=== PATIENT | male | born 1960 | race Caucasian/White ===

== ENCOUNTER 2016-05-02 12:02 | Inpatient (IN) | payer MEDICAID, OTHER ==
[~2016-05-02] VITALS: Ht 188 cm; Wt 140.9 kg
[~2016-05-02 12:02] MED LIST: ASPI81TA2 PO; CARV12.5 PO; CMBV14.7IN INH; FURO20TA PO; GLYB2.5T5 PO; K20 PO; LOVA20TA7 PO; PRI20 PO; SYMINH IH; ZES20 PO
[2016-05-02 12:09] VITALS: BP 137/78; PULSE 104; RESP 15; O2SAT 98
--- NOTE | 2016-05-02 13:07 | DRSVH ---
PROCEDURE: X-RAY CHEST ONE VIEW, PORTABLE ([id number]) INDICATIONS: CHF TECHNIQUE: One view of the chest was acquired. COMPARISON: None. FINDINGS: Surgical changes and devices: None. Lungs and pleura: Lung volumes are low. There is mild interstitial prominence. No focal pulmonary opa cities. No pleural effusion or pneumothorax. Mediastinum: Mediastinal contours appear normal. Heart size is mildly enlarged. Bones and chest wall: No suspicious bony lesions. Overlying soft tissues appear unremarkable. IMPRESSION: Mild cardiomegaly and interstitial prominence suggesting fluid overload. Dictated by: Lubna Nye M.D. on 05/02/2016 at 13:05 Approved by: Lunba Nye M.D. on 05/02/2016 at 13:05
[2016-05-02 13:27] LABS: BASOPHILS % (AUTO) 0.7 % (0-3); EOSINOPHILS % (AUTO) 1.7 % (0-5); MONOCYTES % (AUTO) 8.1 % (4-12); Mean Corpuscular Volume 84.5 fL (81-100); NEUTROPHILS % (AUTO) 66.6 % (40-74); Platelet Count 252 bil/L (150-400)
--- NOTE | 2016-05-02 15:51 | ED.REPORT ---
HPI-General Illness Date of Service May 02, 2016 ED Provider: Vlad Alonzo MD 56 year old male with a hx of CHF, DM, asthma and HTN presents to the ED due to edema that has been worsening over the last month. The edema is present from the abdomen to the feet. The edema is causing him to become SOB. His SOB is worsened with any exertion. Pt has pain with walking due to the pressure on his legs. Pt denies CP. Pt was going to see his PCP, Dr. Escalona, but his appointment was cancelled. 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 Nursing Notes Stated Complaint: POSS CHF Chief Complaint: General Complaint Nursing Notes Reviewed: Yes Allergies: Coded Allergies: No Known Allergies (Unverified Allergy, Unknown, 05/02/16) Scheduled Albuterol HFA (Proair HFA) 8.5 Gm Hfa.aer.ad 2 PUFFS INHALATION Q4H Beclomethasone Dipropionate (Qvar) 8.7 Gm Aer.w.adap 1 PUFF INHALATION BID Furosemide (Lasix) 20 Mg Tablet 20 MG PO DAILY Lisinopril (Lisinopril) 10 Mg Tablet 10 MG PO DAILY Metformin (Glucophage) 1,000 Mg Tablet 1,000 MG PO BID Metformin ER (Metformin ER) 1,000 Mg Tablet 1,000 MG PO DAILY Potassium Chloride ER (Klor-Con M20) 20 Meq Tablet 20 MEQ PO DAILY Pravastatin (Pravastatin) 10 Mg Tablet 10 MG PO HS General Time Seen by MD: 15:45 Chief Complaint Other (LE edema) Hx Obtained From: Patient, Spouse Arrived By: Walk-in Sudden in Onset?: No Onset Occurred: More than a week ago... Symptom Duration: Since onset Location: : Leg left: Leg right Quality: Painful Severity: Current: Mild Associated with: Reports: Shortness of breath, Denies: Fever, Vomiting Similar Sx Previous: Yes Past Medical History Past Medical History 1. Gastrointestinal bleed due to large duodenal ulcer, duodenitis, gastritis. 2. Diabetes. 3. History of chronic systolic congestive heart failure. Suspected cardiomyopathy, worse at 7% EF, highest recorded EF 56%. 4. Asthma. 5. History of transient ischemic attack. 6. History of hypertension. Past Surgical History T&A Smoking History Never Smoker Social History Alcohol Use: Denies alcohol use Drug Use: Denies drug use Review of Systems Full Review of Systems Constitutional: Denies: Chills, Fever Respiratory: Reports: Dyspnea on exertion, Shortness of breath, Denies: Non-productive cough Cardiovascular: Reports: Dyspnea on exertion, Edema, Denies: Chest pain, Syncope GI: Denies: Abdominal pain, Diarrhea, Vomiting Male: Denies Dysuria Musculoskeletal: Reports: Extremity pain, Extremity swelling Neurologic: Denies: Change LOC, Headache Complete sys rev & neg: except as marked. Physical Exam Vital Signs Vital Signs Date Time Temp Pulse Resp B/P Pulse Ox O2 Delivery O2 Flow Rate FiO2 05/02/16 17:02 107 26 116/86 97 1 05/02/16 12:09 36.3 104 15 137/78 98 Room Air Initial VS: Reviewed Head / Eyes: Atraumatic, Normocephalic, PERRL ENT: Conjunctiva normal, No scleral icterus Neck: Supple, Full range of motion Abdomen / GI: Soft, Non-tender Extremities: Vascular intact (3+ edema to mid abd), Neuro intact Skin: Warm, Dry Neurologic: Alert, Oriented, Nonfocal Psychiatric: Mood/affect normal, Behavior normal, Normal thought content General/Constitutional: Awake, Alert, Cooperative Head / Eyes: Atraumatic, Normocephalic, PERRL, No scleral icterus Respiratory / Chest: Atraumatic, Breath sounds NL, Breath sounds = bilat, No rales, No rhonchi, No wheezing Dyspneic with exertion. Dull to percussion, lower third. Cardiovascular: Heart rate NL, Regular rhythm, Heart sounds NL, Cap refill not delayed, Peripheral circulation NL Abdomen: Soft, Non-tender 3+ edema to mid abd Skin: Color NL (No jaundice) Interpretation & Diagnostics Lab Results Interpretation Result Diagram: 05/02/16 1315 05/02/16 1315 Test 05/02/16 13:15 05/02/16 17:25 White Blood Count 6.9th/mm3 (3.8-10.1) Red Blood Count 4.77mil/mm3 (4.40-5.80) Hemoglobin 12.9g/dL (13.8-17.2) Hematocrit 40.3% (41.0-50.0) Mean Corpuscular Volume 84.5fL (81-100) Mean Corpuscular Hemoglobin 27.0pg (27.0-35.0) Mean Corpuscular Hemoglobin Concent 32.0% (32.0-37.0) Red Cell Distribution Width 16.0% (12.3-15.4) Platelet Count 252bil/L (150-400) Neutrophils (%) (Auto) 66.6% (40-74) Lymphocytes (%) (Auto) 22.8% (14-46) Monocytes (%) (Auto) 8.1% (4-12) Eosinophils (%) (Auto) 1.7% (0-5) Basophils (%) (Auto) 0.7% (0-3) Sodium Level 137mEq/L (134-144) Potassium Level 5.6mEq/L (3.5-5.2) Chloride Level 101mEq/L (97-108) Carbon Dioxide Level 26mmol/L (18-29) Blood Urea Nitrogen 28mg/dL (6-24) Creatinine 1.33mg/dL (0.76-1.27) Estimat Glomerular Filtration Rate 59mL/min (>59) Glucose Level 141mg/dL (60-99) Calcium Level 9.2mg/dL (8.5-10.1) Magnesium Level 2.0mg/dL (1.6-2.6) Total Bilirubin 1.0mg/dL (0.0-1.2) Aspartate Amino Transf (AST/SGOT) 19U/L (0-50) Alanine Aminotransferase (ALT/SGPT) 12U/L (0-44) Alkaline Phosphatase 92U/L (25-150) Troponin T < 0.010ug/L (0.0-0.011) Pro-B-Type Natriuretic Peptide 7614pg/mL (0-210) Total Protein 6.8g/dL (6.4-8.4) Albumin 3.4g/dL (3.4-5.0) Lipase 53U/L (13-60) Hold Alaniz Top Tube Received (Received) General Lab Results Interp 1: Labs reviewed ECG Interpretation Time: 13:57 Interpreted by: ED physician Rhythm / Conduction: Tachycardia (rate 104) X-Ray Chest Interpretation Chest Xray Interpretation: IMPRESSION: Mild cardiomegaly and interstitial prominence suggesting fluid overload. Dictated by: Lubna Nye M.D. on 05/02/2016 at 13:05 View: Portable, 1 view Interpretation / Wet Read by: Interpret - Radiologist Re-Eval/Medical Decision Time of Eval: 16:11 Re-Evaluation/Progress Note: Updated pt of labs, ECG and imaging results. Recommended admission. Pt understands and agrees with plan. All questions addressed. Consultation : Referral / Consult Name: Vivek Ambrose MD Consulted With: Hospitalist Call Returned at: 17:31 Dog Track Kennel Manager: Will see patient, Agrees with eval, Agrees with plan, Accepts admit Counseled Regarding: Diagnosis, Lab results, Need for admission Discharge & Departure Primary Impression: CHF exacerbation Disposition: ADMITTED TO HOSPITAL Discharge Condition All VS Reviewed: Yes Referrals: NOPCP (PCP) Jennifer Escalona MD Scribe Attestation Portions of this note were transcribed by Shruthi Escobar. I, (Dr. Alonzo) personally performed the history, physical exam and medical decision-making; I reviewed and confirmed the accuracy of the information in the transcribed note. Signed by: Vernell Pat 05/02/2016, 5093 copies to: Jennifer Escalona MD, Kirk H MD May 02, 2016 15:51 Shruthi Escobar May 02, 2016 16:17
[2016-05-02] MEDS ORDERED: METF1000 PO (16:12)
[2016-05-02] MEDS ORDERED: METF-496 PO (16:12)
[2016-05-02] MEDS ORDERED: LISI10TA PO (16:12)
[2016-05-02] MEDS ORDERED: BECL8.7A6 INHALATION (16:12)
[2016-05-02] MEDS ORDERED: PRAV10TA2 PO (16:12)
[2016-05-02] MEDS ORDERED: FURO-129 PO (16:13)
[2016-05-02] MEDS ORDERED: ALBU8.5H2 INHALATION (16:13)
[2016-05-02] MEDS ORDERED: POTA20TA7 PO (16:13)
[2016-05-02] MEDS ORDERED: Furosemide 10 mg/mL 4 mL Inj IVPUSH ONE (16:15)
[2016-05-02 17:02] VITALS: BP 116/86; PULSE 107; RESP 26; O2SAT 97
[2016-05-02] MEDS ORDERED: Polyethylene Glycol (PEG) 17 Gm Powder PO PRN (17:50)
[2016-05-02] MEDS ORDERED: Ondansetron 2 mg/mL 2 mL Inj IVPUSH PRN ×2 (17:50)
[2016-05-02] MEDS ORDERED: Glucose 40% Oral Gel 15 Gm Tube PO PRN (17:55)
[2016-05-02] MEDS ORDERED: Albuterol 2.5 mg/3 mL Inhalation Solution NEB PRN (18:00)
--- NOTE | 2016-05-02 18:05 | PCM.HPMED ---
Subjective Date of Service May 02, 2016 Primary Provider: Admitting Physician: Vivek Ambrose MD Primary Care Physician: Nopcp Attending Physician: Vivek Ambrose MD Chief Complaint: lower extremity swelling History of Present Illness: 56 year old male with a history of CHF, DM, Asthma and HTN presented to the ED due to worsening lower extremity edema. He stats that he noticed swelling in his bilateral lower extremity about few weeks ago which is gradually worsening and now extending up to his lower abdomen. He also complaints of exertional shortness of breath and crampy pain in his lower extremities more while walking. He was going to see his PCP, Dr. Escalona, but his appointment was cancelled and unable to reschedule it. 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 In ED, he was found to be tachycardic and blood tests showed elevation of pro-BNP. CXR revealed fluid overload. Allergies Coded Allergies: No Known Allergies (Unverified Allergy, Unknown, 05/02/16) PMH - Diabetes - Hypertension - Congestive heart failure - Obesity - Asthma Social History Hx Alcohol Use: No Hx Substance Use: No Hx Tobacco Use: No Smoking Status: Never Smoker Exam Vital Signs Vital Sign - Last Date Time Temp Pulse Resp B/P Pulse Ox O2 Delivery O2 Flow Rate FiO2 05/02/16 17:02 107 26 116/86 97 1 05/02/16 12:09 36.3 Room Air Exam General: In mild distress. AAO x 3 HEENT: Atraumatic, Normocephalic. Mosit mucous membranes. CVS: Regular rate and rhythm, No murmur, S1,S2 yu RS: Decreased breath sounds bilaterally, No wheezing Abdomen: soft, obese, distended, BS +nt Extremities: +3 bilateral lower extremity edema, NEON INSTALLER: AAO x 3, No focal neurological defects Lab and Diagnostics Result Diagram: 05/02/16 1315 05/02/16 1315 Assessment & Plan 56 year old male admitted with impression of acute on chronic congestive heart failure. Acute CHF exacerbation, active present o admission - Likely due to medication compliance - Will start on IV Lasix 40 mg BID - Strict I / O monitoring Diabetes - Will hold metformin in the hospital - Will place on insulin sliding scale Bowel regimen as per protocol Status: Pt to be admitted as inpatient due to complexity of medical condition that will require more then two mid night stay Pain Evaluation: Adequate Pain Control GI Prophylaxis: Proton Pump Inhibitor VTE Prophylaxis: Sub-Q Heparin (Unfractionated) Resuscitation Status: CPR: Attempt Resuscitation Vivek Ambrose MD May 02, 2016 18:05
[2016-05-02 18:20] LABS: APPEARANCE,URINE CLEAR (CLEAR,HAZY); COLOR,URINE YELLOW (YELLOW); OCCULT BLOOD,URINE NEGATIVE (NEGATIVE)
[2016-05-02 18:43] VITALS: BP 116/86; PULSE 107; RESP 26; O2SAT 97
[2016-05-02 19:03] VITALS: BP 126/81; PULSE 107; RESP 30; O2SAT 99
--- NOTE | 2016-05-02 19:30 | NUR ---
admit note: pt. came in for increased lower extremity swelling and increasing sob, worse over past couple weeks. pt. has been on 20mg po lasix at home, received 40mg iv lasix in the ER.
[2016-05-02] MEDS: Fluticasone 100 mCg Inhaler INHALATION SCH (20:42)
[2016-05-02] MEDS: Insulin LISPRO 300 Unit/3 mL Inj SUBQ SCH (20:43)
[2016-05-02] MEDS: Alum-Mag Hydrox-Simeth 30 mL Suspension PO PRN ×2 (21:16→21:21)
[2016-05-02 23:55] VITALS: PULSE 94
[2016-05-02] MEDS: Heparin 5,000 Unit/mL Inj SUBQ SCH (23:55)
[2016-05-03] VITALS (9 sets, daily range): BP systolic 109–139; BP diastolic 66–88; PULSE 86–108; RESP 18–26; O2SAT 92–100
--- NOTE | 2016-05-03 05:14 | NUR ---
Transfer of care: This RN took over care at 2300 from Fadia Henry RN, noticed physical assessment along with skin assessment had not been documented since arrival to floor from ED around 1900. RN contacted admitting RN to alert her to enter her assessment, RN stated she would take care of it.
--- NOTE | 2016-05-03 05:23 | NUR ---
Uneventful Night: Pt had an uneventful night, no c/o pain, chest pain or SOB while in bed. Pt slept off/on throughout the night, pleasant and cooperative with care.
[2016-05-03 06:11] LABS: BASOPHILS % (AUTO) 1.1 % (0-3); EOSINOPHILS % (AUTO) 3.3 % (0-5); MONOCYTES % (AUTO) 9.5 % (4-12); Mean Corpuscular Hemoglobin 26.7 pg (27.0-35.0); Mean Corpuscular Volume 84.3 fL (81-100); NEUTROPHILS % (AUTO) 57.1 % (40-74); Platelet Count 286 bil/L (150-400)
[2016-05-03] MEDS: Insulin LISPRO 300 Unit/3 mL Inj SUBQ SCH ×4 (07:51→22:00)
[2016-05-03] MEDS ORDERED: Furosemide 10 mg/mL 4 mL Inj IVPUSH SCH (08:30)
[2016-05-03] MEDS: Pantoprazole 20 mg ER24 Tablet PO SCH (08:52)
[2016-05-03] MEDS: Heparin 5,000 Unit/mL Inj SUBQ SCH ×2 (08:53→17:06)
[2016-05-03] MEDS: Fluticasone 100 mCg Inhaler INHALATION SCH ×2 (08:53→20:31)
--- NOTE | 2016-05-03 10:30 | NUR ---
IV access Pt reports has been "catching his IV on the bed" IV covered with tape and sleeve. IV not patent, D/Cd intact. New IV access obtained. Pt tolerated well, IV patent and non tender. Call light with in reach, will continue to monitor.
[2016-05-03] MEDS: Furosemide 10 mg/mL 4 mL Inj IVPUSH SCH ×2 (10:54→20:31)
--- NOTE | 2016-05-03 12:46 | PCM.PNMED ---
Subjective Date of Service May 03, 2016 Subjective - Pt seen and examined this morning. Still c/o shortness of breath especially on exertion. States that he is feeling better then yesterday. Lower extremity swelling is less than yesterday. Exam Vital Signs Vital Sign - Last Date Time Temp Pulse Resp B/P Pulse Ox O2 Delivery O2 Flow Rate FiO2 05/03/16 11:47 108 20 97 Room Air 05/03/16 09:36 36.3 134/88 05/03/16 05:47 2.00 Intake and Output 05/02/16 05/02/16 05/03/16 Cumulative From/Thru 15:00 23:00 07:00 05/02/16 12:09 - 05/03/16 06:47 Intake Total 350 ml 350 ml Output Total 1725 ml 1725 ml Balance -1375 ml -1375 ml Intake Oral 350 ml 350 ml Output Urine Total 1725 ml 1725 ml # Bowel Movements 0 0 Exam General: AAO x 3. Not in acute distress HEENT: Atraumatic, Normocephalic. Moist mucous membranes. CVS: Regular rate and rhythm, No murmur, S1,S2 yu RS: Decreased breath sounds bilaterally, No wheezing, Abdomen: soft, obese, distended, BS +nt Extremities: +3 bilateral lower extremity edema, No calf tenderness INVESTIGATOR WELFARE: AAO x 3, No focal neurological defects Lab and Diagnostics Result Diagram: 05/03/1650905/03/16509 Assessment & Plan 56 year old male admitted with impression of acute on chronic congestive heart failure. Acute CHF exacerbation, active present on admission - Improving clinically - BNP on admission was 7614 - Likely due to medication compliance - on IV Lasix 40 mg BID - Continue aspirin, statins and lisinopril - Strict I / O monitoring - ECHO pending - Will consult cardiology after ECHO and if he is not improving clinically. Diabetes - Will hold metformin in the hospital - Will place on insulin sliding scale Bowel regimen as per protocol Dispo: Home when medically stable. Pain Evaluation: Adequate Pain Control GI Prophylaxis: Proton Pump Inhibitor VTE Prophylaxis: Sub-Q Heparin (Unfractionated) Resuscitation Status: CPR: Attempt Resuscitation Vivek Ambrose MD May 03, 2016 12:46
--- NOTE | 2016-05-03 13:13 | NUR ---
Social Work Note D/A: Met at bedside with pt admitted with CHF, no insurance or PCP listed. 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 Pt shares that he let his medical condition get out of control, he is aware of the CHF signs. He had an appt. to establish care at [facility] with Dr. Escalona on 04/28 but it got cancelled. His work schedule makes it very difficult to schedule appts. He currently has no insurance but indicates he is working on that, currently utilizes the $4 medication program at [facility] for all his medications except his Albuterol. PLAN: PEER SPECIALIST to follow closer to d/c to offer assistance with an appt. at [facility] with Dr. Escalona. He will have a better sense of his work schedule as well. REMIGIO Armas
[2016-05-04] VITALS (9 sets, daily range): BP systolic 99–136; BP diastolic 64–84; PULSE 83–96; RESP 18–22; O2SAT 98–100
[2016-05-04] MEDS: Heparin 5,000 Unit/mL Inj SUBQ SCH ×3 (00:56→16:14)
[2016-05-04 06:03] LABS: Mean Corpuscular Hemoglobin 26.5 pg (27.0-35.0); Mean Corpuscular Volume 82.4 fL (81-100)
--- NOTE | 2016-05-04 06:44 | NUR ---
SOB Exacerbation Pt up and moving around room. Playing board games with . Notified pt is SOB and wants to use personal inhaler. Informed pt about medication policy of home medications while admitted to hospital and that PRN treatment by RT is available. Pt declined Nebulizer treatment. Laid in bed with HOB elevated. Symptoms resolved. Continuing to monitor.
[2016-05-04] MEDS: Insulin LISPRO 300 Unit/3 mL Inj SUBQ SCH ×4 (08:00→22:00)
[2016-05-04] MEDS: Fluticasone 100 mCg Inhaler INHALATION SCH ×2 (08:44→19:48)
[2016-05-04] MEDS: Pantoprazole 20 mg ER24 Tablet PO SCH (08:45)
[2016-05-04] MEDS: Furosemide 10 mg/mL 4 mL Inj IVPUSH SCH ×2 (08:46→19:48)
--- NOTE | 2016-05-04 12:55 | DRSVH ---
[facility] [address] [place] [address] Echocardiogram Report Name: WIL DIAS KStudy Date: 05/03/2016 Height: 74 in Hospital Exam Location: [facility] Weight: 373 lb Gender: Male BSA: 2.8 m2 : 1960 Age: 56 yrs BP: 139/84 mmHg Reason For Study: Congestive Heart Failure History: CHF Ordering Physician: Performed By: [facility] Interpretation Summary The left ventricle is severely dilated. There is no thrombus. The ejection fraction is estimated to be 15-20%. Compared to the prior exam, left ventricular function is markedly decreased. The right ventricle is moderately dilated. Right ventricular systolic function is moderately reduced. The left atrium is moderately dilated. There is moderate to severe mitral regurgitation. There is mild to moderate tricuspid regurgitation. Right ventricular systolic pressure is estimated to be 30 mmHg plus the clinically estimated CVP which cannot be estimated on this exam. Procedure: A two-dimensional transthoracic echocardiogram with color flow and Doppler was performed. The study quality was technically adequate. Comparison is made with the echocardiogram of 12/15/2010. A contrast injection of Definity was performed to improve assessment of LV function. The patient was in normal sinus rhythm during the exam. The patient had occasional PVCs during the exam. Left Ventricle: The left ventricle is severely dilated. Left ventricular wall thickness is normal. There is no thrombus. The ejection fraction is estimated to be 15-20%. Compared to the prior exam, left ventricular function is markedly decreased. Right Ventricle: The right ventricle is moderately dilated. Right ventricular systolic function is moderately reduced. Atria: The left atrium is moderately dilated. The right atrium is mildly dilated. The interatrial septum is intact with no evidence for an atrial septal defect. Mitral Valve: The mitral valve is normal in structure but abnormal in function. There is moderate to severe mitral regurgitation. Aortic Valve: The aortic valve is trileaflet. The aortic valve opens well. There is mild aortic regurgitation. Tricuspid Valve: The tricuspid valve leaflets are thin and pliable. There is mild to moderate tricuspid regurgitation. Right ventricular systolic pressure is estimated to be 30 mmHg plus the clinically estimated CVP which cannot be estimated on this exam. Pulmonic Valve: The pulmonic valve leaflets are thin and pliable; valve motion is normal. There is mild pulmonic regurgitation. Great Vessels: The aortic root is normal size. The ascending aorta is mildly enlarged. The IVC has a measurement of 30 mm. Pericardium/ Pleura There is no pericardial effusion. MMode/2D Measurements & Calculations LVIDd: 7.3 cm RA long axis: 6.4 cm LVOT diam LVIDs: 6.2 cm LA A2 area: 32.3 cm FS: 14.4 % LA A4 area: 30.6 cm RA area: 26.1 cm asc Aorta EPSS: 2.6 cm LA length (vol): 7.1 cm RA vol: 90.3 ml Diam: 3.8 cm IVSd: 0.76 cm LA vol: 118.0 ml RA : 31.9 ml/m LVPWd: 0.91 cm RVDd minor: 4.8 cm LA vol index: 41.7 ml/m IVC diam: 3.0 cm EDV(MOD-sp2) LV dewitt. diameter/BSA LV sys. diameter/BSA TAPSE: 1.4 cm : 273.8 ml (cm/m^2): 2.6 (cm/m^2): 2.2 Doppler Measurements & Calculations Ao V2 max MV E max patric MV E/A: 1.7 TR max patric : 113.5 cm/sec : 103.8 cm/sec Med Peak E' Patric : 273.3 cm/sec Ao max PG MV A max patric TR max PG : 5.2 mmHg : 59.7 cm/sec E/E' med: 17.8 : 29.9 mmHg Ao mean PG MV P1/2t: 36.5 msecMV A dur: 0.12 sec PA V2 max : 89.7 cm/sec LVOT Max Patric MR ERO: 0.33 cm2 PA mean PG : 51.5 cm/sec PA Accel Time ALTHEA(I,D): 2.3 cm : 0.12 sec sev ratio MV dec time MV P1/2t max patric Ao V2 mean LV V1 max PG : 0.13 sec : 78.6 cm/sec MVA(P1/2t): 6.0 cm2Ao V2 VTI: 19.6 cm LV V1 VTI: 9.5 cm ALTHEA(V,D): 2.1 cm2 MR flow rate PA V2 mean ALTHEA indexed to BSA : 129.3 cm3/sec : 53.5 cm/sec (cm^2/m^2): 0.80 MR PISA radius Electronically signed by: Kd Solares on Reading Physician:05/04/2016 12:55 PM
--- NOTE | 2016-05-04 20:46 | PCM.PNMED ---
Subjective Date of Service May 04, 2016 Subjective Patient is feeling a little bit better every day. He has no other new complaints. Exam Vital Signs Vital Sign - Last Date Time Temp Pulse Resp B/P Pulse Ox O2 Delivery O2 Flow Rate FiO2 05/04/16 17:11 36.6 83 20 114/77 98 Nasal Cannula 2.00 Intake and Output 05/03/16 05/03/16 05/04/16 Cumulative From/Thru 15:00 23:00 07:00 05/02/16 12:09 - 05/04/16 06:47 Intake Total 876 ml 855 ml 2081 ml Output Total 1450 ml 1000 ml 4175 ml Balance -574 ml -145 ml -2094 ml Intake Oral 876 ml 855 ml 2081 ml Output Urine Total 1450 ml 1000 ml 4175 ml # Bowel Movements 0 0 Exam General: Patient is in no apparent distress and when I enter the room was sitting up in a bedside chair, phone ordering his lunch from the kitchen. HEENT: Head is atraumatic normocephalic. Eyes: Pupils are equally round and reactive to light and accommodation. Extraocular muscles are intact. Sclera are white anicteric. Subconjunctival mucosa is pink. Ears and nose are unremarkable. Oropharynx: There is no mucosal lesions, there is no thrush, there is no pharyngitis. Neck: Is supple, there are no nodes, or masses or tenderness. Chest: Is clear to auscultation and percussion. However, there is diminished breath sounds bilaterally. There are no rales, rhonchi, wheezes or rubs. Heart: Rate, rhythm is regular. There is a grade 2/6 systolic murmur heard best at the left sternal border. There is no rub or gallop. Abdomen: Good bowel sounds are present. Abdomen is morbidly obese, soft, nontender, no organomegaly or masses were appreciated. Extremities: Are symmetrical and well perfused. There is 3+ pitting edema bilaterally, there is no cellulitis, no rash clearly evident. Neurologic: There are no focal neurological deficits. Cranial nerves II through XII are intact. There are no sensory or motor deficits. Psychiatric: Patients mood is calm and shows no sign of agitation. Genital: Deferred Rectal: Deferred Lab and Diagnostics Result Diagram: 05/04/1625 05/04/1625 Microbiology Name: LARISSA CORRALES,WIL Fink Age/Sex: 56/M Attend Dr: Vivek Ambrose MD Acct: [id number] Unit: [id number] Status: ADM IN Location: [facility] 3002-1 Re05/02/16 Disch: Specimen: [id number] Collected: 05/02/16 Status: COMP Req#: [id number] Received: 05/02/16 Source: URINE CC Manohar Desc : ARSH Mason Dr: JAGDISH LOPEZ MD Ordered: URINE CULT Procedure Result Verified Site Microbiology JC CULT URINE Final 05/04/16-911 No growth (<1,000 organisms/mL) X-Rays, CTs and MRIs PROCEDURE: X-RAY CHEST ONE VIEW, PORTABLE ([id number]) INDICATIONS: CHF TECHNIQUE: One view of the chest was acquired. COMPARISON: None. FINDINGS: Surgical changes and devices: None. Lungs and pleura: Lung volumes are low. There is mild interstitial prominence. No focal pulmonary opacities. No pleural effusion or pneumothorax. Mediastinum: Mediastinal contours appear normal. Heart size is mildly enlarged. Bones and chest wall: No suspicious bony lesions. Overlying soft tissues appear unremarkable. IMPRESSION: Mild cardiomegaly and interstitial prominence suggesting fluid overload. Dictated by: Lubna Nye M.D. on 05/02/2016 at 13:05 Approved by: Lubna Nye M.D. on 05/02/2016 at 13:05 Cardiac Echo Impressions Echocardiogram Report Name: WIL DIAS KStudy Date: 05/03/2016 Height: 74 in Hospital Exam Location: [facility] Weight: 373 lb Gender: Male BSA: 2.8 m2 : 1960 Age: 56 yrs BP: 139/84 mmHg Reason For Study: Congestive Heart Failure History: CHF Ordering Physician: Performed By: Elizabeth ALVARADO [facility] Interpretation Summary The left ventricle is severely dilated. There is no thrombus. The ejection fraction is estimated to be 15-20%. Compared to the prior exam, left ventricular function is markedly decreased. The right ventricle is moderately dilated. Right ventricular systolic function is moderately reduced. The left atrium is moderately dilated. There is moderate to severe mitral regurgitation. There is mild to moderate tricuspid regurgitation. Right ventricular systolic pressure is estimated to be 30 mmHg plus the clinically estimated CVP which cannot be estimated on this exam Assessment & Plan 56 year old male admitted with impression of acute on chronic congestive heart failure. # Acute CHF exacerbation, active present on admission with anasarca - Slowly Improving clinically - BNP on admission was 7614 - Likely due to medication compliance -Start beta blockade with Coreg 3.125 mg by mouth twice a day and increase gradually as tolerated - Continue IV Lasix 40 mg BID - Continue lisinopril -Continue aspirin and statin - Strict I / O monitoring - ECHO shows ejection fraction of 15-20% - Will consult cardiology # Diabetes - Will hold metformin in the hospital for now - Will place on insulin sliding scale # Morbid obesity -Apparently patient has lost a considerable amount weighted used to weigh over 400 pounds and now weighs 368 pounds Bowel regimen as per protocol Dispo: Home when medically stable. Discussed with patient's at bedside. Pain Evaluation: Adequate Pain Control GI Prophylaxis: Proton Pump Inhibitor VTE Prophylaxis: Sub-Q Heparin (Unfractionated) VTE Mechanical Devices: Intermittant Pneumatic CD Resuscitation Status: CPR: Attempt Resuscitation Noah Garduno MD May 04, 2016 20:46
[2016-05-05] VITALS (8 sets, daily range): BP systolic 90–137; BP diastolic 53–90; PULSE 75–90; RESP 20–24; O2SAT 95–100
[2016-05-05] MEDS: Heparin 5,000 Unit/mL Inj SUBQ SCH ×3 (00:03→17:09)
--- NOTE | 2016-05-05 05:01 | NUR ---
Activity Ambulating in room with strong steady gait. Reports TAVERAS with minimal activity but states it resolves quickly once at rest. Denies any significant improvement in respiratory status from admit but also denies worsening symptoms. Currently resting without any complaints.
[2016-05-05 06:02] LABS: BASOPHILS % (AUTO) 1.2 % (0-3); MONOCYTES % (AUTO) 9.2 % (4-12); Mean Corpuscular Hemoglobin 26.8 pg (27.0-35.0); Mean Corpuscular Volume 84.7 fL (81-100); NEUTROPHILS % (AUTO) 59.8 % (40-74); Platelet Count 287 bil/L (150-400)
[2016-05-05 06:35] LABS: Magnesium 2.1 mg/dL (1.6-2.6)
[2016-05-05] MEDS ORDERED: Furosemide 10 mg/mL 4 mL Inj IVPUSH SCH (08:30)
[2016-05-05] MEDS: Fluticasone 100 mCg Inhaler INHALATION SCH ×2 (08:54→20:04)
[2016-05-05] MEDS: Insulin LISPRO 300 Unit/3 mL Inj SUBQ SCH ×4 (08:54→22:00)
[2016-05-05] MEDS: Pantoprazole 20 mg ER24 Tablet PO SCH (08:55)
[2016-05-05] MEDS ORDERED: guaiFENesin DM 200-20 mg/10 mL Syrup PO PRN (11:05)
[2016-05-05] MEDS ORDERED: 0.9% Sodium Chloride 250 ML ONE (11:23)
[2016-05-05] MEDS: Furosemide Inj 100 MG in 0.9% Sodium Chloride 90 ML IV SCH (11:40)
--- NOTE | 2016-05-05 12:42 | CONS ---
[address] [address] CONSULTATION REPORT PATIENT: WIL DIAS : 1960 MR#: [id number] ADMIT: 05/02/2016 JOB ID: [id number] DATE OF SERVICE: 05/05/2016 CARDIOLOGY CONSULTATION: REASON FOR CONSULT: I was asked to see this patient regarding cardiomyopathy, symptoms of CHF. CHIEF COMPLAINT: Worsening shortness of breath, lower extremity swelling for the last couple of months. PRESENT HISTORY: This is a 56-year-old, pleasant male who has a history of nonischemic cardiomyopathy in remote past, which recovered based on echocardiogram in December 2010 with LV ejection fraction 60-65%, previous LV ejection fraction about 10% as per the previous history, status post heart catheterization in the last couple of years ago. At that time, no significant coronary artery disease. Details not available at present. History of GI bleed with duodenal ulcer in December 2010, which has recovered, essential hypertension, marked obesity, sleep apnea, diabetes mellitus, asthma. He got admitted because of above-mentioned chief complaint. According to the patient, from last three months he has been noticing worsening lower extremity swelling as well as shortness of breath. Swelling has worsened and now has extended all the way up to his abdomen. He gets shortness of breath on minimal exertion. Denies any active chest pain or palpitation. He has some orthopneic and PND like components as well. Denies any alcohol abuse or recent viral infection or connective tissue disorder. According to him, he was compliant with his medication. Denies any drug abuse. 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 Up until three months ago he was eating a lot of junk food but from last three months he has been trying to eat healthy. The patient was seen in the emergency department. He was found to be in congestive heart failure. He had echocardiogram yesterday which revealed severely dilated left ventricle with LV end-diastolic dimension 7.3 cm and systolic dimension 6.2 cm with LV ejection fraction 15-20%. Right ventricle moderately dilated. Right ventricular systolic function moderately reduced. Left atrium moderately dilated. Moderate to severe mitral regurgitation which appears to be functional, mild aortic regurgitation, mild to moderate tricuspid regurgitation. Pulmonary artery systolic pressure could not be evaluated, however, IVC was dilated. No pericardial effusion. PAST MEDICAL HISTORY: 1. History of nonischemic cardiomyopathy, which has recovered in 2010 with preserved LV function with recurrence of cardiomyopathy. 2. Essential hypertension. 3. History of systolic congestive heart failure in the past. 4. Marked obesity. 5. Sleep apnea. 6. Asthma. 7. Hyperlipidemia. PAST SURGICAL HISTORY: As stated above. ALLERGIES: Denies any allergy. SOCIAL HISTORY: Denies any tobacco abuse or substance abuse or alcohol abuse. MEDICATIONS: At home he was takin. Albuterol inhaler. 2. Furosemide 20 mg daily. 3. Lisinopril 10 mg daily. 4. Metformin 1 mg b.i.d. 5. Lasix. 6. Potassium chloride 20 mEq daily. 7. Pravastatin 10 mg daily. FAMILY HISTORY: Positive for hypertension. REVIEW OF SYSTEMS: HEENT: As stated above. Respiratory system as stated above. CV as stated above. GI as stated above. : Denies any hematuria or dysuria. GOLD PLATER: Denies any stroke, seizure. Hematology/endocrinology as stated above. Skin: Denies any new rash. PHYSICAL EXAMINATION: Blood pressure 116/78, heart rate 84, respiratory rate 20, oxygen saturation 2 L 96%. Today negative balance of 600. His weight is 169.2 kg. No significant anemia. Neck: Positive JVD. Chest: Decreased air entry with bilateral basal crepitations. CVS: Distant heart sounds. Abdomen: Markedly obese with skin edema, unable to palpate liver or spleen. Extremities: Significant bilateral lower extremity edema. Vascular: No evidence of critical limb ischemia. GOLD PLATER: Alert and oriented to time, place and person. Able to move all the four extremities. LABORATORY: Sodium 136, potassium 5.0, BUN 38, creatinine 1.47, yesterday creatinine was 1.30 with normal magnesium, bilirubin, AST, ALT. ProBNP decreased to 5559. Normal troponin. WBC 6, hemoglobin 12.3, platelets 287. IMAGING: X-ray chest: Cardiomegaly with evidence of CHF. EKG on admission revealed sinus rhythm with sinus tachycardia with some nonspecific ST-T changes, poor R-wave progression. QTc 457 msec. MT interval 182 msec. It was done on May 02, 2016. ASSESSMENT AND PLAN: 1. Subacute predominantly systolic biventricular failure with underlying severe dilated cardiomyopathy with significantly decreased LV function, moderate to severe mitral regurgitation which appears to be functional due to dilated left ventricle with known history of essential hypertension, diabetes mellitus, sleep apnea. The patient has known history of dilated cardiomyopathy which has recovered in the past. 2. The patient denies any recent viral infection, chemotherapy or radiation or history of drug abuse or alcohol abuse. No known history of coronary artery disease or connective tissue disorders. No history of substance abuse. 3. The patient has on clinical examination significant volume overload. We will start him on Lasix drip of 5 mg/hour and see the response. If we are not getting good urine output, we will recommend increasing to 10 mg/hour. Down the road if needed, we can add on Zaroxolyn to facilitate diuresis. In this whole process, worsening of renal function is expected. We will repeat electrolytes in the morning. If potassium remains stable, we will recommend adding spironolactone 12.5 mg to begin with. He has already started on carvedilol which at this point of time, we will continue, unless there is a deterioration of CHF. He is on CLEO inhibitor. Slowly and gradually we will recommend optimization and maximization of CLEO inhibitor and beta carline. He has a dilated cardiomyopathy. Hence there is indication for digoxin. I will start 125 mcg daily dose. Keep a close watch on dig level. After five days, repeat dig level. We will try to get his records from [place]. Consider fluid and salt restriction, daily input/output monitoring as well as pulmonary embolism prophylaxis. Once he gets compensated, he will need ischemic evaluation again in view of recurrence of significant cardiomyopathy. Tomorrow my associate, Dr. Orourke, will be available to see the patient. Discussed the plan with the patient and his as well as the hospitalist team. They agreed and concur. TOTAL TIME SPENT: About 70 minutes.
--- NOTE | 2016-05-05 19:16 | PCM.PNMED ---
Subjective Date of Service May 05, 2016 Subjective The patient is more tired today and more short of breath. He has no other new complaints. He has no chest pain. He has no fever, no chills, no diaphoresis. Exam Vital Signs Vital Sign - Last Date Time Temp Pulse Resp B/P Pulse Ox O2 Delivery O2 Flow Rate FiO2 05/05/16 17:30 36.4 90 24 109/76 95 Nasal Cannula 2.00 Intake and Output 05/04/16 05/04/16 05/05/16 Cumulative From/Thru 15:00 23:00 07:00 05/02/16 12:09 - 05/05/16 06:23 Intake Total 1340 ml 400 ml 3821 ml Output Total 900 ml 1000 ml 6075 ml Balance 440 ml -600 ml -2254 ml Intake Oral 1340 ml 400 ml 3821 ml IV Total 0 ml 0 ml Output Urine Total 900 ml 1000 ml 6075 ml # Bowel Movements 0 1 1 Exam General: Patient is lying supine in bed today appearing more fatigued than yesterday. HEENT: Head is atraumatic normocephalic. Eyes: Pupils are equally round and reactive to light and accommodation. Extraocular muscles are intact. Sclera are white anicteric. Subconjunctival mucosa is pink. Ears and nose are unremarkable. Oropharynx: There is no mucosal lesions, there is no thrush, there is no pharyngitis. Neck: Is supple, there are no nodes, or masses or tenderness. Chest: Is clear to auscultation and percussion. However, there is diminished breath sounds bilaterally. There are no rales, rhonchi, wheezes or rubs. Heart: Rate, rhythm is regular. Heart tones are distant. However, there is a grade 2/6 systolic murmur heard best at the left sternal border. There is no rub or gallop appreciated. Abdomen: Good bowel sounds are present. Abdomen is morbidly obese, soft, nontender, no organomegaly or masses were appreciated. Extremities: Are symmetrical and well perfused. There is 3+ pitting edema bilaterally, there is no cellulitis, no rash clearly evident. Neurologic: There are no focal neurological deficits. Cranial nerves II through XII are intact. There are no sensory or motor deficits. Psychiatric: Patients mood is calm and shows no sign of agitation. Genital: Deferred Rectal: Deferred Lab and Diagnostics Result Diagram: 12/29/16 0520 05/05/16 0520 Microbiology Name: WIL DIAS SR Age/Sex: 56/M Attend Dr: Vivek Ambrose MD Acct: [id number] Unit: [id number] Status: ADM IN Location: [facility] [place], [place] 3002-1 Re05/02/16 Disch: Specimen: [id number] Collected: 05/02/16 Status: COMP Req#: [id number] Received: 05/02/16 Source: URINE CC Sp Desc : ARSH Mason Dr: JESSICA,JAGDISH CLARK Ordered: URINE CULT Procedure Result Verified Site Microbiology JC CULT URINE Final 05/04/16-911 No growth (<1,000 organisms/mL) X-Rays, CTs and MRIs PROCEDURE: X-RAY CHEST ONE VIEW, PORTABLE ([id number]) INDICATIONS: CHF TECHNIQUE: One view of the chest was acquired. COMPARISON: None. FINDINGS: Surgical changes and devices: None. Lungs and pleura: Lung volumes are low. There is mild interstitial prominence. No focal pulmonary opacities. No pleural effusion or pneumothorax. Mediastinum: Mediastinal contours appear normal. Heart size is mildly enlarged. Bones and chest wall: No suspicious bony lesions. Overlying soft tissues appear unremarkable. IMPRESSION: Mild cardiomegaly and interstitial prominence suggesting fluid overload. Dictated by: Lubna Nye M.D. on 05/02/2016 at 13:05 Approved by: Lubna Nye M.D. on 05/02/2016 at 13:05 Cardiac Echo Impressions Echocardiogram Report Name: WIL DIAS KStudy Date: 05/03/2016 Height: 74 in Hospital Exam Location: [facility] Weight: 373 lb Gender: Male BSA: 2.8 m2 : 1960 Age: 56 yrs BP: 139/84 mmHg Reason For Study: Congestive Heart Failure History: CHF Ordering Physician: Performed By: [facility] Interpretation Summary The left ventricle is severely dilated. There is no thrombus. The ejection fraction is estimated to be 15-20%. Compared to the prior exam, left ventricular function is markedly decreased. The right ventricle is moderately dilated. Right ventricular systolic function is moderately reduced. The left atrium is moderately dilated. There is moderate to severe mitral regurgitation. There is mild to moderate tricuspid regurgitation. Right ventricular systolic pressure is estimated to be 30 mmHg plus the clinically estimated CVP which cannot be estimated on this exam Assessment & Plan 56 year old male admitted with impression of acute on chronic congestive heart failure. # Acute primarily systolic biventricular acute on chronic CHF exacerbation, active present on admission with anasarca -I have consulted Dr. Stock from cardiology and his impression is as follows: "Subacute predominantly systolic biventricular failure with underlying severe dilated cardiomyopathy with significantly decreased LV function, moderate to severe mitral regurgitation which appears to be functional due to dilated left ventricle with known history of essential hypertension, diabetes mellitus, sleep apnea. The patient has known history of dilated cardiomyopathy which has recovered in the past." - BNP on admission was 7614 - Likely due to medication compliance. We have requested the records from the house from [place] where he was diagnosed with congestive heart failure and a very low ejection fraction less than 10%, according to the patient. -Continue beta blockade with Coreg and increase to 6.25 mg, from 3.125 mg started yesterday, by mouth twice a day and increase gradually as tolerated -Change IV Lasix 40 mg BID to a Lasix drip starting at 5 mg an hour and increase to 10 mg an hour in little to no response. - Continue lisinopril for now, however if renal function deteriorates may need to discontinue. -Digoxin has been added by cardiology. Will need to follow digoxin levels -Consider addition of spironolactone and potassium remains stable. -Continue aspirin and statin - Strict I / O monitoring - ECHO shows ejection fraction of 15-20% # Diabetes - Will hold metformin in the hospital for now - Will place on insulin sliding scale # Morbid obesity -Apparently patient has lost a considerable amount weighted used to weigh over 400 pounds and now weighs 368 pounds Bowel regimen as per protocol Dispo: Home when medically stable. Patient is likely to be here several more days. Discussed with patient's at bedside. Discussed with Dr. Stock at length and appreciate his input. Pain Evaluation: Adequate Pain Control GI Prophylaxis: Proton Pump Inhibitor VTE Prophylaxis: Sub-Q Heparin (Unfractionated) VTE Mechanical Devices: Intermittant Pneumatic CD Resuscitation Status: CPR: Attempt Resuscitation Noah Garduno MD May 05, 2016 19:16
[2016-05-06] VITALS (13 sets, daily range): BP systolic 80–104; BP diastolic 49–69; PULSE 75–88; RESP 24–36; O2SAT 98–100
[2016-05-06] MEDS: Furosemide Inj 100 MG in 0.9% Sodium Chloride 90 ML IV SCH ×3 (01:00→23:00)
[2016-05-06] MEDS: Heparin 5,000 Unit/mL Inj SUBQ SCH (01:00)
[2016-05-06 06:29] LABS: BASOPHILS % (AUTO) 1.2 % (0-3); EOSINOPHILS % (AUTO) 3.3 % (0-5); MONOCYTES % (AUTO) 12.5 % (4-12); Mean Corpuscular Hemoglobin 26.9 pg (27.0-35.0); Mean Corpuscular Volume 85.7 fL (81-100); NEUTROPHILS % (AUTO) 54.6 % (40-74); Platelet Count 241 bil/L (150-400)
[2016-05-06] MEDS: Insulin LISPRO 300 Unit/3 mL Inj SUBQ SCH ×4 (08:00→21:52)
[2016-05-06] MEDS: Fluticasone 100 mCg Inhaler INHALATION SCH ×2 (08:57→20:30)
[2016-05-06] MEDS: Pantoprazole 20 mg ER24 Tablet PO SCH (08:58)
[2016-05-06] MEDS ORDERED: 0.9% Sodium Chloride 250 ML ONE (09:46)
--- NOTE | 2016-05-06 15:25 | NUR ---
Social Work: Continued d/c planning Data: Pt is on day 4 of hospitalization. EMR reviewed, pt discussed in rounds. states pt likely to remain in hospital for at least 2-3 more days. CIGAR HEAD PERFORATOR called [facility] and confirmed they have pt on their radar. Pt requires a follow up appointment to be made at d/c for [facility]. CIGAR HEAD PERFORATOR will continue to follow if needs arise. Assessment: Pt who is independent at baseline. Plan: Pt will d/c home via POV when medically stable. Pt requires a follow up appointment to be made at d/c for [facility]. CIGAR HEAD PERFORATOR will continue to follow if needs arise. DANIEL Davis
--- NOTE | 2016-05-06 16:19 | PCM.PNCARD ---
Subjective Date of service May 06, 2016 Chief Complaint dyspnea from HF History of Present Illness 56 yo obese M h/o DM, HTN, and remote self reported of HF that resolved in 2010 admitted with dyspnea from HFrEF. Subjective: Patient continues to feel short of breath. He is urinating better today with increased furosemide drip. PROBLEM LIST: # HFrEF: dilated LV (LVEDD 7.3cm) with EF 15%. Normal LVEF 2010 but it was low in the per patient # Mitral regurgitation, moderate to severe # Diabetes # HTN # HLD # Obesity # H/O GIB from duodenal ulcer 2010 that has resolved Exam Vital Signs Vital Sign - Last Date Time Temp Pulse Resp B/P Pulse Ox O2 Delivery O2 Flow Rate FiO2 05/06/16 13:48 36.6 75 24 90/56 98 Nasal Cannula 2.00 Intake and Output 05/05/16 05/05/16 05/06/16 Cumulative From/Thru 15:00 23:00 07:00 05/02/16 12:09 - 05/06/16 06:59 Intake Total 1215 ml 470 ml 5506 ml Output Total 1020 ml 1550 ml 8645 ml Balance 195 ml -1080 ml -3139 ml Intake Oral 1120 ml 470 ml 5411 ml IV Total 95 ml 0 ml 95 ml Output Urine Total 1020 ml 1550 ml 8645 ml # Bowel Movements 0 1 General appearance: No apparent distress, obese, pleasant, cooperative HEET: Normocephalic atraumatic, no scleral icterus, tongue midline, mucous membranes moist Neck: supple Cardiovascular: RRR, S1 and S2, +JVD, 3+ LE edema b/l Respiratory: fair aeration, conversational dyspnea, coarse b/l Abdomen: Soft, nontender, obese, + bowel sounds Lab and Diagnostics Result Diagram: 05/06/16 0600 05/06/16 06 X-Rays, CTs and MRIs Echo 05/03/2016: Severely dilated left ventricle with EF 15-20%, moderately dilated right ventricle with mildly reduced function, moderate to severe mitral regurgitation Assessment & Plan Assessment 56 yo obese M h/o DM, HTN, and remote self reported of HF that resolved in 2010 admitted with dyspnea from HFrEF: # HFrEF: dilated LV (LVEDD 7.3cm) with EF 15%. Normal LVEF 2010 but it was low in the 1999s per patient. He is NYHA class IV. He remains hypervolemic on exam but his BUN/Cr have risen with diuresis that could be due to cardiorenal syndrome (ACC stage D). Etiology of HF is unclear but ischemic cardiomyopathy is high on the differential given significant risk factors (uncontrolled diabetes, HTN, HLD). Idiopathic dilated cardiomyopathy also possible. Plan: - Stop carvedilol give decompensated HF - Continue furosemide IV 10mg/hr gtt - Stop lisinopril and will consider starting hydralazine for better afterload reduction. If significant DAWIT or the patient having hypotension, patient would need inotropic gtt - coronary angiography once euvolemic and Cr stable and at baseline # Mitral regurgitation, moderate to severe: likely due dilated LV. Continue to monitor. # Diabetes: defer to PCP. # HTN: well controlled. # HLD: reasonable control. - Continue pravastatin 10mg qhs # Obesity: patient educated to work on loosing weight as outpatient # H/O GIB from duodenal ulcer 2010 that has resolved. Will keep an eye on Hb/ Hct Problems: Pain Evaluation: Adequate Pain Control GI Prophylaxis: Proton Pump Inhibitor VTE Prophylaxis: Sub-Q Heparin (Unfractionated) VTE Mechanical Devices: Intermittant Pneumatic CD Resuscitation Status: CPR: Attempt Resuscitation Yaneth Orourke MD May 06, 2016 16:19
--- NOTE | 2016-05-06 18:35 | NUR ---
BP/output Pt's BP remained hypotensive throughout this shift, pt enc to change position slowly to allow body to adjust to the change prior to amb to [facility]. MD aware of BP's, staff scientist had dc'd Coreg. Pt urinating more, using urinal to ensure correct I/O. Bed in lowest, locked position and call light in reach.
--- NOTE | 2016-05-06 20:28 | PCM.PNMED ---
Subjective Date of Service May 06, 2016 Subjective The patient is feeling a little bit better today he has more energy and is slightly less short of breath. However, he still gets significant shortness of breath just going to the bathroom. Exam Vital Signs Vital Sign - Last Date Time Temp Pulse Resp B/P Pulse Ox O2 Delivery O2 Flow Rate FiO2 05/06/16 18:19 37.0 81 24 92/62 99 Nasal Cannula 2.00 Intake and Output 05/05/16 05/05/16 05/06/16 Cumulative From/Thru 14:59 22:59 06:59 05/02/16 12:09 - 05/06/16 06:59 Intake Total 1215 ml 470 ml 5506 ml Output Total 1020 ml 1550 ml 8645 ml Balance 195 ml -1080 ml -3139 ml Intake Oral 1120 ml 470 ml 5411 ml IV Total 95 ml 0 ml 95 ml Output Urine Total 1020 ml 1550 ml 8645 ml # Bowel Movements 0 1 Exam General: Patient is sitting up beside the bed today much more comfortable. HEENT: Head is atraumatic normocephalic. Eyes: Pupils are equally round and reactive to light and accommodation. Extraocular muscles are intact. Sclera are white anicteric. Subconjunctival mucosa is pink. Ears and nose are unremarkable. Oropharynx: There are no mucosal lesions, there is no thrush, there is no pharyngitis. Neck: Is supple, there are no nodes, or masses or tenderness. Chest: Is clearer to auscultation and percussion. However, there is still diminished breath sounds bilaterally. There are no rales, rhonchi, wheezes or rubs. Heart: Rate, rhythm is regular. Heart tones are distant. However, there is a grade 2/6 systolic murmur heard best at the left sternal border. There is no rub or gallop appreciated. Abdomen: Good bowel sounds are present. Abdomen is morbidly obese, soft, nontender, no organomegaly or masses were appreciated. Extremities: Are symmetrical and well perfused. There is 3+ pitting edema bilaterally, there is no cellulitis, no rash clearly evident. Neurologic: There are no focal neurological deficits. Cranial nerves II through XII are intact. There are no sensory or motor deficits. Psychiatric: Patients mood is calm and shows no sign of agitation. Genital: Deferred Rectal: Deferred Lab and Diagnostics Result Diagram: 05/06/16 0600 05/06/16 06 Microbiology Name: WIL DIAS SR Age/Sex: 56/M Attend Dr: Vivek Ambrose MD Acct: [id number] Unit: [id number] Status: ADM IN Location: [facility] [place] 3002-1 Re05/02/16 Disch: Specimen: [id number] Collected: 05/02/16 Status: COMP Req#: [id number] Received: 05/02/16 Source: URINE CC Sp Desc : ARSH Mason Dr: JESSICA,JAGDISH CLARK Ordered: URINE CULT Procedure Result Verified Site Microbiology JC CULT URINE Final 05/04/16-911 No growth (<1,000 organisms/mL) X-Rays, CTs and MRIs PROCEDURE: X-RAY CHEST ONE VIEW, PORTABLE ([id number]) INDICATIONS: CHF TECHNIQUE: One view of the chest was acquired. COMPARISON: None. FINDINGS: Surgical changes and devices: None. Lungs and pleura: Lung volumes are low. There is mild interstitial prominence. No focal pulmonary opacities. No pleural effusion or pneumothorax. Mediastinum: Mediastinal contours appear normal. Heart size is mildly enlarged. Bones and chest wall: No suspicious bony lesions. Overlying soft tissues appear unremarkable. IMPRESSION: Mild cardiomegaly and interstitial prominence suggesting fluid overload. Dictated by: Lubna Nye M.D. on 05/02/2016 at 13:05 Approved by: Lubna Nye M.D. on 05/02/2016 at 13:05 Cardiac Echo Impressions Echocardiogram Report Name: WIL DIAS KStudy Date: 05/03/2016 Height: 74 in Hospital Exam Location: [facility] Weight: 373 lb Gender: Male BSA: 2.8 m2 : 1960 Age: 56 yrs BP: 139/84 mmHg Reason For Study: Congestive Heart Failure History: CHF Ordering Physician: Performed By: [facility] Interpretation Summary The left ventricle is severely dilated. There is no thrombus. The ejection fraction is estimated to be 15-20%. Compared to the prior exam, left ventricular function is markedly decreased. The right ventricle is moderately dilated. Right ventricular systolic function is moderately reduced. The left atrium is moderately dilated. There is moderate to severe mitral regurgitation. There is mild to moderate tricuspid regurgitation. Right ventricular systolic pressure is estimated to be 30 mmHg plus the clinically estimated CVP which cannot be estimated on this exam Assessment & Plan 56 year old male admitted with impression of acute on chronic congestive heart failure. # Acute primarily systolic biventricular acute on chronic CHF exacerbation, active present on admission with anasarca -I have consulted Dr. Stock from cardiology and his impression is as follows: "Subacute predominantly systolic biventricular failure with underlying severe dilated cardiomyopathy with significantly decreased LV function, moderate to severe mitral regurgitation which appears to be functional due to dilated left ventricle with known history of essential hypertension, diabetes mellitus, sleep apnea. The patient has known history of dilated cardiomyopathy which has recovered in the past." -Dr. Gtz saw today 05/06/2016 and his recommendations are as follows: "- Stop carvedilol give decompensated HF - Continue furosemide IV 10mg/hr gtt - Stop lisinopril and will consider starting hydralazine for better afterload reduction. If significant DAWIT or the patient having hypotension, patient would need inotropic gtt - coronary angiography once euvolemic and Cr stable and at baseline" - BNP on admission was 7614. We will continue to check periodically - Likely due to medication compliance. We have requested the records from the house from [place] where he was diagnosed with congestive heart failure and a very low ejection fraction less than 10%, according to the patient. These records were filed a different building in over 10 years ago and will be here likely on May 10. -Coreg discontinued per cardiology -Continue Lasix drip 10 mg an hour in little to no response. - Discontinue lisinopril per cardiology -Digoxin has been added by cardiology. Will need to follow digoxin levels -Consider addition of spironolactone depending on potassium levels -Continue aspirin and statin - Strict I / O monitoring - ECHO shows ejection fraction of 15-20% # Diabetes - Will hold metformin in the hospital for now - Will place on insulin sliding scale # Morbid obesity -Apparently patient has lost a considerable amount weighted used to weigh over 400 pounds and now weighs 374 pounds much of which is water weight due to anasarca. Bowel regimen as per protocol Dispo: Home when medically stable. Patient is likely to be here several more days. Discussed with patient's at bedside. Discussed with Dr. Stock at length and appreciate his input. Pain Evaluation: Adequate Pain Control GI Prophylaxis: Proton Pump Inhibitor VTE Prophylaxis: Sub-Q Heparin (Unfractionated) VTE Mechanical Devices: Intermittant Pneumatic CD Resuscitation Status: CPR: Attempt Resuscitation Noah Garduno MD May 06, 2016 20:28
--- NOTE | 2016-05-06 20:29 | NUR ---
Shower Pt requesting to take shower. asked if Pt ok for shower and to be off telemetry. said NO. Pt told that the doctor was NOT ok with him taking shower. Pt showered any way and said he didn't care what the doctor said. in with Pt assisting with shower. notified.
[2016-05-07] VITALS (9 sets, daily range): BP systolic 87–139; BP diastolic 58–89; PULSE 77–93; RESP 19–26; O2SAT 95–100
[2016-05-07] MEDS: Insulin LISPRO 300 Unit/3 mL Inj SUBQ SCH ×4 (08:00→22:00)
[2016-05-07] MEDS: Fluticasone 100 mCg Inhaler INHALATION SCH ×2 (08:21→19:52)
[2016-05-07] MEDS: Furosemide Inj 100 MG in 0.9% Sodium Chloride 90 ML IV SCH ×2 (08:22→17:43)
[2016-05-07] MEDS: Pantoprazole 20 mg ER24 Tablet PO SCH (08:22)
--- NOTE | 2016-05-07 11:41 | NUR ---
Transfer to PCC Pt transferred to PCC via w/c, following report to Daphney Montoya RN. Pt's Lasix gtt remained running for transfer. Family at bedside and aware of transfer, all belongings sent with pt.
[2016-05-07] MEDS: D5W IV SCH ×4 (13:04→19:58)
[2016-05-07] MEDS: MILRINONE IV SCH ×4 (13:04→19:58)
[2016-05-07] MEDS ORDERED: Sodium Chloride LOK Flush 10 mL Syringe IVFLUSH PRN ×2 (13:25)
--- NOTE | 2016-05-07 13:39 | PCM.PNCARD ---
Subjective Date of service May 07, 2016 Chief Complaint dyspnea from HF History of Present Illness 56 yo obese M h/o DM, HTN, and remote self reported of HF that resolved in 2010 admitted with dyspnea from HFrEF. Subjective: Patient continues to feel short of breath. He is urinating better today and patient feels good about it. PROBLEM LIST: # HFrEF: dilated LV (LVEDD 7.3cm) with EF 15%. Normal LVEF 2010 but it was low in the 1999s per patient # Mitral regurgitation, moderate to severe # Diabetes # HTN # HLD # Obesity # H/O GIB from duodenal ulcer 2010 that has resolved Exam Vital Signs Vital Sign - Last Date Time Temp Pulse Resp B/P Pulse Ox O2 Delivery O2 Flow Rate FiO2 05/07/16 13:04 88 05/07/16 09:38 36.8 24 109/74 99 Nasal Cannula 2.00 Intake and Output 05/06/16 05/06/16 05/07/16 Cumulative From/Thru 15:00 23:00 07:00 05/02/16 12:09 - 05/07/16 05:00 Intake Total 1286 ml 6792 ml Output Total 1250 ml 9895 ml Balance 36 ml -3103 ml Intake Oral 832 ml 6243 ml IV Total 454 ml 549 ml Output Urine Total 1250 ml 9895 ml # Bowel Movements 1 General appearance: No apparent distress, obese, pleasant, cooperative HEET: Normocephalic atraumatic, no scleral icterus, tongue midline, mucous membranes moist Neck: supple Cardiovascular: RRR, S1 and S2, +JVD, 3+ LE edema b/l Respiratory: fair aeration, conversational dyspnea, coarse b/l Abdomen: Soft, nontender, obese, + bowel sounds Lab and Diagnostics Result Diagram: 05/06/16 0600 05/07/16 0510 X-Rays, CTs and MRIs Echo 05/03/2016: Severely dilated left ventricle with EF 15-20%, moderately dilated right ventricle with mildly reduced function, moderate to severe mitral regurgitation Assessment & Plan Assessment 56 yo obese M h/o DM, HTN, and remote self reported of HF that resolved in 2010 admitted with dyspnea from HFrEF: # HFrEF: dilated LV (LVEDD 7.3cm) with EF 15%. Normal LVEF 2010 but it was low in the 1999s per patient. He is NYHA class IV. He remains hypervolemic on exam but his BUN/Cr have risen with diuresis that is probably due to cardiorenal syndrome (ACC stage D). Etiology of HF is unclear but ischemic cardiomyopathy is high on the differential given significant risk factors ( uncontrolled diabetes, HTN, HLD). Idiopathic dilated cardiomyopathy also possible. Plan: - Monitor closely in the telemetry - Avoid beta-blockers at this time - Start IV milrinone gtt at low dose to help with inotropic support and afterload reduction - Continue furosemide IV 10mg/hr gtt - Coronary angiography once euvolemic and Cr stable and at baseline # Mitral regurgitation, moderate to severe: likely due dilated LV. Continue to monitor. # Diabetes: defer to PCP. # HTN: well controlled. # HLD: reasonable control. - Continue pravastatin 10mg qhs # Obesity: patient educated to work on loosing weight as outpatient # H/O GIB from duodenal ulcer 2010 that has resolved. Will closely monitor Hb/ Hct Problems: Pain Evaluation: Adequate Pain Control GI Prophylaxis: Proton Pump Inhibitor VTE Prophylaxis: Sub-Q Heparin (Unfractionated) VTE Mechanical Devices: Intermittant Pneumatic CD Resuscitation Status: CPR: Attempt Resuscitation Yaneth Orourke MD May 07, 2016 13:39
--- NOTE | 2016-05-07 13:43 | DRSVH ---
PROCEDURE: X-RAY PICC LINE PLACEMENT BY NURSE ([id number]) INDICATIONS: 56-year-old male with PICC placement for cardiac medications. COMPARISON: None. FINDINGS: PICC was placed by the intravenous therapy team from the left side. Fluoroscopic spot javier m demonstrates tip of PICC in the lower superior vena cava. IMPRESSION: Tip of PICC lies within the lower superior vena cava. Dictated by: Geronimo Mendez M.D. on 05/07/2016 at 13:41 Approved by: Geronimo Mendez M.D. on 05/07/2016 at 13:41
[2016-05-07] MEDS ORDERED: 0.9% Sodium Chloride 250 ML ONE (14:50)
--- NOTE | 2016-05-07 17:58 | NUR ---
Gtts Pt started on milrinone gtt at 0.241mcg/kg/min per Dr. Orourke, continues on Lasix gtt at 10mg/hr; 1350cc UOP since milrinone started. NSR with occasional PVCs, rate in 90s. Denies CP/Pressure. Independent to void in urinal at bedside. Uses call light to make needs known. at bedside.
--- NOTE | 2016-05-07 21:54 | PCM.PNMED ---
Subjective Date of Service May 07, 2016 Subjective Patient is feeling a little bit better today. He has no new complaints. Exam Vital Signs Vital Sign - Last Date Time Temp Pulse Resp B/P Pulse Ox O2 Delivery O2 Flow Rate FiO2 05/07/16 19:58 88 05/07/16 19:46 36.3 25 109/58 100 Nasal Cannula 3.00 Intake and Output 05/06/16 05/06/16 05/07/16 Cumulative From/Thru 15:00 23:00 07:00 05/02/16 12:09 - 05/07/16 05:00 Intake Total 1286 ml 6792 ml Output Total 1250 ml 9895 ml Balance 36 ml -3103 ml Intake Oral 832 ml 6243 ml IV Total 454 ml 549 ml Output Urine Total 1250 ml 9895 ml # Bowel Movements 1 Exam General: Patient is laying supine with head elevated approximately 15-20 this morning. He states that he is able to lay flatter more comfortably than before. HEENT: Head is atraumatic normocephalic. Eyes: Pupils are equally round and reactive to light and accommodation. Extraocular muscles are intact. Sclera are white anicteric. Subconjunctival mucosa is pink. Ears and nose are unremarkable. Oropharynx: There are no mucosal lesions, there is no thrush, there is no pharyngitis. Neck: Is supple, there are no nodes, or masses or tenderness. Chest: Is clearer to auscultation and percussion. However, there is still diminished breath sounds bilaterally. There are no rales, rhonchi, wheezes or rubs. Heart: Rate, rhythm is regular. Heart tones are distant. However, there is a grade 2/6 systolic murmur heard best at the left sternal border. There is no rub or gallop appreciated. Abdomen: Good bowel sounds are present. Abdomen is morbidly obese, soft, nontender, no organomegaly or masses were appreciated. Extremities: Are symmetrical and well perfused. There is 3+ pitting edema bilaterally, there is no cellulitis, no rash clearly evident. Neurologic: There are no focal neurological deficits. Cranial nerves II through XII are intact. There are no sensory or motor deficits. Psychiatric: Patients mood is calm and shows no sign of agitation. Genital: Deferred Rectal: Deferred Lab and Diagnostics Result Diagram: 05/06/16 0600 05/07/16 0510 Microbiology Name: WIL DIAS SR Age/Sex: 56/M Attend Dr: Vivek Ambrose MD Acct: [id number] Unit: [id number] Status: ADM IN Location: [facility] [place] 3002-1 Re05/02/16 Disch: Specimen: [id number] Collected: 05/02/16 Status: COMP Req#: [id number] Received: 05/02/16 Source: URINE GERBER Villela Desc : ARSH Mason Dr: JAGDISH LOPEZ MD Ordered: URINE CULT Procedure Result Verified Site Microbiology JC CULT URINE Final 05/04/16-09 No growth (<1,000 organisms/mL) X-Rays, CTs and MRIs PROCEDURE: X-RAY CHEST ONE VIEW, PORTABLE ([id number]) INDICATIONS: CHF TECHNIQUE: One view of the chest was acquired. COMPARISON: None. FINDINGS: Surgical changes and devices: None. Lungs and pleura: Lung volumes are low. There is mild interstitial prominence. No focal pulmonary opacities. No pleural effusion or pneumothorax. Mediastinum: Mediastinal contours appear normal. Heart size is mildly enlarged. Bones and chest wall: No suspicious bony lesions. Overlying soft tissues appear unremarkable. IMPRESSION: Mild cardiomegaly and interstitial prominence suggesting fluid overload. Dictated by: Lubna Nye M.D. on 05/02/2016 at 13:05 Approved by: Lubna Nye M.D. on 05/02/2016 at 13:05 Cardiac Echo Impressions Echocardiogram Report Name: WIL DIAS KStudy Date: 05/03/2016 Height: 74 in Hospital Exam Location: [facility] Weight: 373 lb Gender: Male BSA: 2.8 m2 : 1960 Age: 56 yrs BP: 139/84 mmHg Reason For Study: Congestive Heart Failure History: CHF Ordering Physician: Performed By: Elizabeth Lawson [facility] Interpretation Summary The left ventricle is severely dilated. There is no thrombus. The ejection fraction is estimated to be 15-20%. Compared to the prior exam, left ventricular function is markedly decreased. The right ventricle is moderately dilated. Right ventricular systolic function is moderately reduced. The left atrium is moderately dilated. There is moderate to severe mitral regurgitation. There is mild to moderate tricuspid regurgitation. Right ventricular systolic pressure is estimated to be 30 mmHg plus the clinically estimated CVP which cannot be estimated on this exam Assessment & Plan 56 year old male admitted with impression of acute on chronic congestive heart failure. # Acute primarily systolic biventricular acute on chronic CHF exacerbation, active present on admission with anasarca -I have consulted Dr. Stock from cardiology and his impression is as follows: "56 yo obese M h/o DM, HTN, and remote self reported of HF that resolved in 2010 admitted with dyspnea from HFrEF: # HFrEF: dilated LV (LVEDD 7.3cm) with EF 15%. Normal LVEF 2010 but it was low in the per patient. He is NYHA class IV. He remains hypervolemic on exam but his BUN/Cr have risen with diuresis that is probably due to cardiorenal syndrome (ACC stage D). Etiology of HF is unclear but ischemic cardiomyopathy is high on the differential given significant risk factors ( uncontrolled diabetes, HTN, HLD). Idiopathic dilated cardiomyopathy also possible. Plan: - Monitor closely in the telemetry - Avoid beta-blockers at this time - Start IV milrinone gtt at low dose to help with inotropic support and afterload reduction - Continue furosemide IV 10mg/hr gtt - Coronary angiography once euvolemic and Cr stable and at baseline" -Dr. Gtz saw today 05/06/2016 and his recommendations are as follows: - BNP on admission was 7614. We will continue to check periodically - Likely due to medication compliance. We have requested the records from the house from [place] where he was diagnosed with congestive heart failure and a very low ejection fraction less than 10%, according to the patient. These records were filed a different building in over 10 years ago and will be here likely on May 10. -Coreg discontinued per cardiology due to decompensated heart failure -Continue Lasix drip 10 mg an hour (due to little to no response at 5 mg an hour ). - Discontinue lisinopril per cardiology due to progressive renal failure -Digoxin has been added by cardiology. Will need to follow digoxin levels periodically. -Consider addition of spironolactone depending on potassium levels -Continue aspirin and statin - Strict I / O monitoring - ECHO shows ejection fraction of 15-20% # Diabetes - Will hold metformin in the hospital for now - Will place on insulin sliding scale # Morbid obesity -Apparently patient has lost a considerable amount weighted used to weigh over 400 pounds and now weighs 374 pounds much of which is water weight due to anasarca. Bowel regimen as per protocol Dispo: Home when medically stable. Patient is likely to be here several more days. Discussed with patient's at bedside. Discussed with Dr. Orourke at length and appreciate his input. Pain Evaluation: Adequate Pain Control GI Prophylaxis: Proton Pump Inhibitor VTE Prophylaxis: Sub-Q Heparin (Unfractionated) VTE Mechanical Devices: Intermittant Pneumatic CD Resuscitation Status: CPR: Attempt Resuscitation ShaanNoah MD May 07, 2016 21:54
[2016-05-08] VITALS (9 sets, daily range): BP systolic 104–130; BP diastolic 51–79; PULSE 82–102; RESP 17–28; O2SAT 97–100
[2016-05-08] MEDS: Furosemide Inj 100 MG in 0.9% Sodium Chloride 90 ML IV SCH (02:13)
[2016-05-08 03:42] LABS: BASOPHILS % (AUTO) 0.7 % (0-3); EOSINOPHILS % (AUTO) 2.5 % (0-5); MONOCYTES % (AUTO) 13.4 % (4-12); Mean Corpuscular Hemoglobin 26.5 pg (27.0-35.0); Mean Corpuscular Volume 85.2 fL (81-100); NEUTROPHILS % (AUTO) 64.9 % (40-74); Platelet Count 222 bil/L (150-400)
--- NOTE | 2016-05-08 04:37 | NUR ---
Cardiac: Milrinone gtt and lasix gtt infusing overnight. Pt voiding ample amount of pale urine per urinal ( see I &O). PT denies any chest pain or discomfort. Sp02 maintained 90s on 2 L NC. Tele SR 80s with PVCs. Care ongoing.
[2016-05-08] MEDS: D5W IV SCH ×4 (06:37→16:14)
[2016-05-08] MEDS: MILRINONE IV SCH ×4 (06:37→16:14)
[2016-05-08] MEDS: Pantoprazole 20 mg ER24 Tablet PO SCH (07:30)
[2016-05-08] MEDS: Insulin LISPRO 300 Unit/3 mL Inj SUBQ SCH ×4 (07:31→22:00)
[2016-05-08] MEDS: Fluticasone 100 mCg Inhaler INHALATION SCH ×2 (07:31→20:42)
[2016-05-08] MEDS: Furosemide 10 mg/mL 2 mL Inj IV SCH ×3 (10:07→20:42)
--- NOTE | 2016-05-08 10:54 | PCM.PNCARD ---
Subjective Date of service May 08, 2016 Chief Complaint dyspnea from HF History of Present Illness 56 yo obese M h/o DM, HTN, and remote self reported of HF that resolved in 2010 admitted with dyspnea from HFrEF. Subjective: Patient was started on milrinone gtt yesterday and had good diuresis. His breathing is much improved today and is able to speak without dyspnea PROBLEM LIST: # HFrEF: dilated LV (LVEDD 7.3cm) with EF 15%. Normal LVEF 2010 but it was low in the per patient # Mitral regurgitation, moderate to severe # Diabetes # HTN # HLD # Obesity # H/O GIB from duodenal ulcer 2010 that has resolved Exam Vital Signs Vital Sign - Last Date Time Temp Pulse Resp B/P Pulse Ox O2 Delivery O2 Flow Rate FiO2 05/08/16 08:00 91 05/08/16 07:30 Supplement Oxygen 05/08/16 07:25 36.9 24 123/67 100 2.00 05/08/16 03:24 98 Intake and Output 05/07/16 05/07/16 05/08/16 Cumulative From/Thru 15:00 23:00 07:00 05/02/16 12:09 - 05/08/16 05:08 Intake Total 790 ml 422 ml 453 ml 8457 ml Output Total 2270 ml 1950 ml 2225 ml 64008 ml Balance -1480 ml -1528 ml -1772 ml -7883 ml Intake Oral 790 ml 240 ml 200 ml 7473 ml IV Total 182 ml 253 ml 984 ml Output Urine Total 2270 ml 1950 ml 2225 ml 99941 ml # Voids 0 0 # Bowel Movements 0 0 1 General appearance: No apparent distress, obese, pleasant, cooperative HEET: Normocephalic atraumatic, no scleral icterus, tongue midline, mucous membranes moist Neck: supple Cardiovascular: RRR, S1 and S2, +JVD (less than yesterday), 3+ LE edema b/l Respiratory: fair aeration, coarse b/l Abdomen: Soft, nontender, obese, + bowel sounds Lab and Diagnostics Result Diagram: 05/08/16 0326 05/08/16 0326 X-Rays, CTs and MRIs Echo 05/03/2016: Severely dilated left ventricle with EF 15-20%, moderately dilated right ventricle with mildly reduced function, moderate to severe mitral regurgitation Assessment & Plan Assessment 56 yo obese M h/o DM, HTN, and remote self reported of HF that resolved in 2010 admitted with dyspnea from HFrEF: # HFrEF: dilated LV (LVEDD 7.3cm) with EF 15%. Normal LVEF 2010 but it was low in the per patient. He is NYHA class IIIb. He remains hypervolemic on exam but has responded nicely to milrinone and IV lasix with -3L in the past 24 hours. Etiology of HF is unclear but ischemic cardiomyopathy is high on the differential given significant risk factors (uncontrolled diabetes, HTN, HLD). Idiopathic dilated cardiomyopathy also possible. Plan: - Monitor closely in the telemetry - Avoid beta-blockers at this time - Continue hydralazine 25mg tid, hold if SBP < 110 - Continue IV milrinone gtt at low dose to help with inotropic support and afterload reduction - Change from furosemide IV 10mg/hr gtt to 60mg IV tid - Will consider starting CLEO-I in the next 1-2 days - Start spironolactone 12.5mg qday - Coronary angiography once euvolemic and Cr stable and at baseline # Mitral regurgitation, moderate to severe: likely due dilated LV. Continue to monitor. # Diabetes: defer to PCP. # HTN: well controlled. # HLD: reasonable control. - Continue pravastatin 10mg qhs # Obesity: patient educated to work on loosing weight as outpatient # H/O GIB from duodenal ulcer 2010 that has resolved. Will closely monitor Hb/ Hct Problems: Pain Evaluation: Adequate Pain Control GI Prophylaxis: Proton Pump Inhibitor VTE Prophylaxis: Sub-Q Heparin (Unfractionated) VTE Mechanical Devices: Intermittant Pneumatic CD Resuscitation Status: CPR: Attempt Resuscitation Yaneth Orourke MD May 08, 2016 10:54
--- NOTE | 2016-05-08 16:59 | NUR ---
Lasix/Tele Lasix drip has been DC'ed and 60mg IVP TID has been ordered. Pt voided 4125mL light marie urine during the shift, with BP's holding in the 115's. TELE SR with one 3 beat run of vtach around 1500.
--- NOTE | 2016-05-08 23:39 | PCM.PNMED ---
Subjective Date of Service May 08, 2016 Subjective Jaspal Flynn Sr is a 56-year-old male with past medical history significant for congestive heart failure, secondary to systolic, diabetes mellitus type II, asthma, and hypertension who presented to his [facility] ED due to worsening lower extremity edema and dyspnea. Hospital day #7. Overnight: There were no acute events. Telemetry overnight: Sinus rhythm, heart rate 80-90s, with occasional PVCs. The patient is resting comfortably on the side of the bed. He reports that his breathing has much improved. He is urinating frequently. He has not had a bowel movement in several days. He reports normal appetite. He denies headache , chest pain, shortness of breath, abdominal pain, nausea, vomiting, fever, chills, dysuria, or diarrhea. . Exam Vital Signs Vital Sign - Last Date Time Temp Pulse Resp B/P Pulse Ox O2 Delivery O2 Flow Rate FiO2 05/08/16 23:13 102 05/08/16 16:50 36.9 24 116/75 100 Nasal Cannula 1.00 05/08/16 03:24 98 Intake and Output 05/07/16 05/07/16 05/08/16 Cumulative From/Thru 15:00 23:00 07:00 05/02/16 12:09 - 05/08/16 05:08 Intake Total 790 ml 422 ml 453 ml 8457 ml Output Total 2270 ml 1950 ml 2225 ml 28537 ml Balance -1480 ml -1528 ml -1772 ml -7883 ml Intake Oral 790 ml 240 ml 200 ml 7473 ml IV Total 182 ml 253 ml 984 ml Output Urine Total 2270 ml 1950 ml 2225 ml 22760 ml # Voids 0 0 # Bowel Movements 0 0 1 Exam General: Patient is laying supine with head elevated approximately 15-20 this morning. He states that he is able to lay flatter more comfortably than before. HEENT: Head is atraumatic normocephalic. Eyes: Pupils are equally round and reactive to light and accommodation. Extraocular muscles are intact. Sclera are white anicteric. Subconjunctival mucosa is pink. Ears and nose are unremarkable. Oropharynx: There are no mucosal lesions, there is no thrush, there is no pharyngitis. Neck: Supple, there are no nodes, or masses or tenderness. Chest: Is clearer to auscultation and percussion. However, there is still diminished breath sounds bilaterally. There are no rales, rhonchi, wheezes or rubs. Heart: Rate, rhythm is regular. Heart tones are distant. However, there is a grade 2/6 systolic murmur heard best at the left sternal border. There is no rub or gallop appreciated. Abdomen: Good bowel sounds are present. Abdomen is morbidly obese, soft, nontender, no organomegaly or masses were appreciated. Extremities: Are symmetrical and well perfused. There is 3+ pitting edema bilaterally, there is no cellulitis, no rash clearly evident. Neurologic: There are no focal neurological deficits. Cranial nerves II through XII are intact. There are no sensory or motor deficits. Psychiatric: Patients mood is calm and shows no sign of agitation. . IVs and Medications Medications Reviewed: Medications were reviewed in detail Lab and Diagnostics Item Value Date Time Calcium Level 8.8 mg/dL 05/08/16 0326 Total Bilirubin 0.7 mg/dL 05/08/16 0326 Aspartate Amino Transf (AST/SGOT) 15 U/L 05/08/16 0326 Alanine Aminotransferase (ALT/SGPT) 11 U/L 05/08/16 0326 Alkaline Phosphatase 94 U/L 05/08/16 0326 Total Protein 6.0 g/dL L 05/08/16 0326 Albumin 3.3 g/dL L 05/08/16 0326 Result Diagram: 05/08/16 0326 05/08/16 1430 Microbiology Urine culture shows no growth to date. . X-Rays, CTs and MRIs X-RAY CHEST ONE VIEW, PORTABLE IMPRESSION: Mild cardiomegaly and interstitial prominence suggesting fluid overload. Dictated by: Lubna Nye M.D. on 05/02/2016 at 13:05 Approved by: Lubna Nye M.D. on 05/02/2016 at 13:05 . Cardiac Echo Impressions Echocardiogram Interpretation Summary: The left ventricle is severely dilated. There is no thrombus. The ejection fraction is estimated to be 15-20%. Compared to the prior exam, left ventricular function is markedly decreased. The right ventricle is moderately dilated. Right ventricular systolic function is moderately reduced. The left atrium is moderately dilated. There is moderate to severe mitral regurgitation. There is mild to moderate tricuspid regurgitation. Right ventricular systolic pressure is estimated to be 30 mmHg plus the clinically estimated CVP which cannot be estimated on this exam Electronically signed by: Kd Solares on Reading Physician:05/04/2016 12:55 PM . Assessment & Plan Jaspal Flynn Sr is a 56-year-old male with past medical history significant for congestive heart failure, secondary to systolic, diabetes mellitus type II, asthma, and hypertension who presented to his [facility] ED due to worsening lower extremity edema and dyspnea. Hospital day #7. # Acute on chronic primarily systolic biventricular CHF exacerbation, present on admission. Active. - NYHA class IV. - Likely due to medication non-compliance. We have requested the records from the house from [place] where he was diagnosed with congestive heart failure and a very low ejection fraction less than 10%, according to the patient. These records were filed a different building in over 10 years ago and will be here likely on May 10. - He remains hypervolemic on exam but his BUN/Cr have risen with diuresis that is probably due to cardiorenal syndrome (ACC stage D). - Etiology of heart failure is unclear but ischemic cardiomyopathy is high on the differential given significant risk factors (uncontrolled diabetes, HTN, HLD ). Idiopathic dilated cardiomyopathy also possible. - Monitor closely on telemetry. - Discontinue lisinopril per cardiology due to progressive renal failure - Digoxin has been added by cardiology. Will need to follow digoxin levels periodically. - Started spironolactone 25 mg daily per cardiology. - Continue aspirin 81 mg daily and pravastatin 10 mg daily at bedtime. - Strict I / O monitoring - ECHO shows ejection fraction of 15-20%, as above. - Carvedilol discontinued due to decompensated heart failure. Avoid beta- blockers. - BNP on admission was 7614. Continue to check periodically. - Start IV milrinone gtt at low dose to help with inotropic support and afterload reduction. - Lasix drip discontinued. Started furosemide IV 60 mg 3 times a day per cardiology. - Coronary angiography once euvolemic and Cr stable and at baseline. - Cardiology consulted and following. We appreciate their time and recommendations. Chronic problems: Hypertension, chronic. - Continue hydralazine 25 mg 3 times a day per cardiology. Diabetes mellitus type II, non-insulin using. Chronic. - Held metformin in the hospital for now. - Continue low dose correctional scale insulin. - Continue heart healthy/carbohydrate consistent diet. Morbid obesity, chronic. - BMI 46.8. - Apparently patient has lost a considerable amount weighted used to weigh over 400 pounds and now weighs 374 pounds much of which is water weight due to anasarca. Dispo: Home when medically stable. Patient is likely to be here several more days. . GI Prophylaxis: Proton Pump Inhibitor VTE Prophylaxis: Sub-Q Heparin (Unfractionated) VTE Mechanical Devices: Intermittant Pneumatic CD Resuscitation Status: CPR: Attempt Resuscitation Attending Statement The patient was seen and examined together with Dr. Slater on 05-08-16 and I agree with the history, exam and plan as outlined in the note above. Susan Slater DO May 08, 2016 23:39 Swetha Willis MD May 09, 2016 16:59
[2016-05-09] VITALS (13 sets, daily range): BP systolic 88–130; BP diastolic 48–76; PULSE 78–147; RESP 18–34; O2SAT 94–99
[2016-05-09] MEDS: D5W IV SCH ×8 (01:24→22:47)
[2016-05-09] MEDS: MILRINONE IV SCH ×8 (01:24→22:47)
[2016-05-09 04:11] LABS: BASOPHILS % (AUTO) 0.7 % (0-3); EOSINOPHILS % (AUTO) 2.8 % (0-5); MONOCYTES % (AUTO) 15.1 % (4-12); Mean Corpuscular Hemoglobin 27.3 pg (27.0-35.0); Mean Corpuscular Volume 83.6 fL (81-100); NEUTROPHILS % (AUTO) 56.2 % (40-74); Platelet Count 228 bil/L (150-400)
--- NOTE | 2016-05-09 05:17 | NUR ---
edema, uop pt a/o times three, brad, pt up to void per urinal in bathroom-steady on his feet and at bedside, pt very private person, large uop per urinal, see wt changes and i/o charting, pitting edema from toes to hips and some bilaterally on lateral portion of abdomen, pt stating he feels better after voiding off so much fluid, pt very compliant with fluid restriction, legs slightly reddened, pt states that happens when he feels warm, no bm, no n/v, abd round/soft, tele- hr 90-100, sr/st, bp stable, denies cp, ls-decreased t/o, hob up, ra sats while awake in mid to upper 90's while asleep pt on 1-2 liters o2 per nc, sats mid 90's, resp rate upper 20's, cont pulse ox on while pt asleep, milrinone gtt per orders, see mar for pt med list, left picc intact see assessment charting, plan:more diuresis, cardiac work up, Addendum: 05/09/16 at 0529 by ZULEMA DESIR RN pt had 13 beat run vt this am, pt asymptomatic, am labs pending,
[2016-05-09] MEDS: Insulin LISPRO 300 Unit/3 mL Inj SUBQ SCH ×4 (08:00→22:00)
[2016-05-09] MEDS: Furosemide 10 mg/mL 2 mL Inj IV SCH ×3 (08:34→21:58)
[2016-05-09] MEDS: Pantoprazole 20 mg ER24 Tablet PO SCH (08:34)
[2016-05-09] MEDS: Fluticasone 100 mCg Inhaler INHALATION SCH ×2 (08:35→21:58)
[2016-05-09] MEDS ORDERED: acetaZOLAMIDE 250 mg Tablet PO ONE (11:40)
--- NOTE | 2016-05-09 11:57 | PCM.PNCARD ---
Subjective Date of service May 09, 2016 Chief Complaint dyspnea from HF History of Present Illness 56 yo obese M h/o DM, HTN, and remote self reported of HF that resolved in 2010 admitted with dyspnea from HFrEF. Subjective: Patient was started on milrinone gtt 05/07/2016 and has had good diuresis since then. His breathing has much improved today and is able to speak without dyspnea. Patient's scrotum size has also decreased. PROBLEM LIST: # HFrEF: dilated LV (LVEDD 7.3cm) with EF 15%. Normal LVEF 2010 but it was low in the per patient # Mitral regurgitation, moderate to severe # Diabetes # HTN # HLD # Obesity # H/O GIB from duodenal ulcer 2010 that has resolved Exam Vital Signs Vital Sign - Last Date Time Temp Pulse Resp B/P Pulse Ox O2 Delivery O2 Flow Rate FiO2 05/09/16 08:30 36.9 96 28 118/66 99 Nasal Cannula 2.00 05/08/16 03:24 98 Intake and Output 05/08/16 05/08/16 05/09/16 Cumulative From/Thru 15:00 23:00 07:00 05/02/16 12:09 - 05/09/16 06:16 Intake Total 900 ml 546 ml 9903 ml Output Total 4125 ml 4000 ml 82143 ml Balance -3225 ml -3454 ml -38369 ml Intake Oral 900 ml 400 ml 8773 ml IV Total 146 ml 1130 ml Output Urine Total 4125 ml 4000 ml 61074 ml # Voids 0 # Bowel Movements 0 1 General appearance: No apparent distress, obese, pleasant, cooperative HEET: Normocephalic atraumatic, no scleral icterus, tongue midline, mucous membranes moist Neck: supple Cardiovascular: RRR, S1 and S2, +JVD (less than yesterday), 2+ LE edema b/l Respiratory: fair aeration, coarse b/l Abdomen: Soft, nontender, obese, + bowel sounds Lab and Diagnostics Result Diagram: 05/09/1640805/09/16408 X-Rays, CTs and MRIs Echo 05/03/2016: Severely dilated left ventricle with EF 15-20%, moderately dilated right ventricle with mildly reduced function, moderate to severe mitral regurgitation 12-lead ECG Tele: sinus rhythm with occasional PVCs and four beat run of non-sustained VT Assessment & Plan Assessment 56 yo obese M h/o DM, HTN, and remote self reported of HF that resolved in 2010 admitted with dyspnea and anasarca from HFrEF: # HFrEF: dilated LV (LVEDD 7.3cm) with EF 15%. Normal LVEF 2010 but it was low in the 2000s per patient. He is NYHA class IIIb. He remains hypervolemic on exam but has responded nicely to milrinone and IV lasix with -5L in the past 24 hours. Etiology of HF is unclear but ischemic cardiomyopathy is high on the differential given significant risk factors (uncontrolled diabetes, HTN, HLD). Idiopathic dilated cardiomyopathy also possible. Plan: - Monitor closely in the telemetry - Avoid beta-blockers at this time - Continue IV milrinone gtt at low dose to help with inotropic support and afterload reduction - Continue furosemide 60mg IV tid - Start lisinopril 5mg qhs - Uptitrate spironolactone from 12.5mg qday to 25mg qday - Uptitrate hydralazine from 25mg tid to 50mg tid, hold if SBP < 100 - Given one dose of acetazolamide 250mg PO X1 to help with rising CO2. - Coronary angiography once euvolemic and Cr stable and at baseline # Mitral regurgitation, moderate to severe: likely due dilated LV. Continue to monitor. # Diabetes: defer to PCP. # HTN: well controlled. # HLD: reasonable control. - Continue pravastatin 10mg qhs # Obesity: patient educated to work on loosing weight as outpatient # H/O GIB from duodenal ulcer 2010 that has resolved. Will closely monitor Hb/ Hct Problems: Pain Evaluation: Adequate Pain Control GI Prophylaxis: Proton Pump Inhibitor VTE Prophylaxis: Sub-Q Heparin (Unfractionated) VTE Mechanical Devices: Intermittant Pneumatic CD Resuscitation Status: CPR: Attempt Resuscitation Yaneth Orourke MD May 09, 2016 11:56
[2016-05-09] MEDS: Albuterol-Ipratropium 3 mL Inhalation Solution NEB SCH ×3 (12:52→20:49)
--- NOTE | 2016-05-09 17:32 | NUR ---
Social Work Note: Continued Discharge Planning Data& Assessment: EMR Reviewed. Pt is not medically ready for discharge at this time. SW met with pt at bedside to confirm discharge plan and assess for any unmet needs. Pt confirmed discharge plan to go home via POV when medically ready. Per MD in morning rounds, pt may have heart cath in the next 1-2 days. Pt denies any other needs at this time. SW to continue to follow if any needs arise. Plan: Anticipated discharge home via POV when medically ready. Pt denies any other needs at this time. SW to continue to follow if any needs arise. DANIEL Pena
--- NOTE | 2016-05-09 18:03 | NUR ---
O2/Output The pt remained off O2 for most of the day, with sats holding in the mid to low 90's. Approx 4 liters of urine output
--- NOTE | 2016-05-09 18:11 | PCM.PNMED ---
Subjective Date of Service May 09, 2016 Subjective Jaspal Flynn Sr is a 56-year-old male with past medical history significant for congestive heart failure, secondary to systolic, diabetes mellitus type II, asthma, and hypertension who presented to his [facility] ED due to worsening lower extremity edema and dyspnea. Hospital day #8. Overnight: There were no acute events. Telemetry overnight: 13 beat Vtach, otherwise heart rate 80-90s, with occasional PVCs. The patient is resting comfortably on the side of the bed. He reports that his breathing has much improved and is avoiding elevating feet due to increase congestion in lungs . He is urinating frequently. He has not had a bowel movement in several days. He reports normal appetite. He reports mild frontal and ocular headache and denies chest pain, shortness of breath on current O2, abdominal pain, nausea, vomiting, fever, chills, dysuria, or diarrhea. . Exam Vital Signs Vital Sign - Last Date Time Temp Pulse Resp B/P Pulse Ox O2 Delivery O2 Flow Rate FiO2 05/09/16 04:01 36.5 95 26 118/66 97 Nasal Cannula 1.50 05/08/16 03:24 98 Intake and Output 05/08/16 05/08/16 05/09/16 Cumulative From/Thru 15:00 23:00 07:00 05/02/16 12:09 - 05/09/16 06:16 Intake Total 900 ml 546 ml 9903 ml Output Total 4125 ml 4000 ml 62335 ml Balance -3225 ml -3454 ml -43347 ml Intake Oral 900 ml 400 ml 8773 ml IV Total 146 ml 1130 ml Output Urine Total 4125 ml 4000 ml 76334 ml # Voids 0 # Bowel Movements 0 1 Exam General: Patient is laying supine with head elevated approximately 15-20 this morning. He states that he is able to lay flatter more comfortably than before. HEENT: Head is atraumatic normocephalic. Eyes: Pupils are equally round and reactive to light and accommodation. Extraocular muscles are intact. Sclera are white anicteric. Subconjunctival mucosa is pink. Ears and nose are unremarkable. Oropharynx: There are no mucosal lesions, there is no thrush, there is no pharyngitis. Neck: Supple, there are no nodes, or masses or tenderness. Chest: Is clearer to auscultation and percussion. However, there is still diminished breath sounds bilaterally. There are no rales, rhonchi, wheezes or rubs. Heart: Rate, rhythm is regular. Heart tones are distant. However, there is a grade 2/6 systolic murmur heard best at the left sternal border. There is no rub or gallop appreciated. Abdomen: Good bowel sounds are present. Abdomen is morbidly obese, soft, nontender, no organomegaly or masses were appreciated anasarca and abdominal pitting edema much improved overnight. Extremities: Are symmetrical and well perfused. There is 3+ pitting edema bilaterally to the knee, there is no cellulitis, no rash clearly evident. Neurologic: There are no focal neurological deficits. Cranial nerves II through XII are intact. There are no sensory or motor deficits. Psychiatric: Patients mood is calm and shows no sign of agitation. IVs and Medications Medications Reviewed: Medications were reviewed in detail Lab and Diagnostics Result Diagram: 05/09/1640805/09/16408 Microbiology Urine culture shows no growth to date. . X-Rays, CTs and MRIs X-RAY CHEST ONE VIEW, PORTABLE IMPRESSION: Mild cardiomegaly and interstitial prominence suggesting fluid overload. Dictated by: Lubna Nye M.D. on 05/02/2016 at 13:05 Approved by: Lubna Nye M.D. on 05/02/2016 at 13:05 . Cardiac Echo Impressions Echocardiogram Interpretation Summary: The left ventricle is severely dilated. There is no thrombus. The ejection fraction is estimated to be 15-20%. Compared to the prior exam, left ventricular function is markedly decreased. The right ventricle is moderately dilated. Right ventricular systolic function is moderately reduced. The left atrium is moderately dilated. There is moderate to severe mitral regurgitation. There is mild to moderate tricuspid regurgitation. Right ventricular systolic pressure is estimated to be 30 mmHg plus the clinically estimated CVP which cannot be estimated on this exam Electronically signed by: Kd stack Reading Physician:05/04/2016 12:55 PM . Assessment & Plan Jaspal Flynn Sr is a 56-year-old male with past medical history significant for congestive heart failure, secondary to systolic, diabetes mellitus type II, asthma, and hypertension who presented to his [facility] ED due to worsening lower extremity edema and dyspnea. Hospital day #8. 1 Acute on chronic primarily systolic biventricular CHF exacerbation, present on admission. Active. - NYHA class IV. - Likely due to medication non-compliance. We have requested the records from the house from [place] where he was diagnosed with congestive heart failure and a very low ejection fraction less than 10%, according to the patient. These records were filed a different building in over 10 years ago and will be here likely on May 10. - He remains hypervolemic on exam but his BUN/Cr have risen with diuresis that is probably due to cardiorenal syndrome (ACC stage D). - Etiology of heart failure is unclear but ischemic cardiomyopathy is high on the differential given significant risk factors (uncontrolled diabetes, HTN, HLD ). Idiopathic dilated cardiomyopathy also possible. - Monitor closely on telemetry. - lisinopril 2.5 added today per cardiology. - Acetazolamide one time dose today per cardiology. - Digoxin has been added by cardiology. Will need to follow digoxin levels periodically. - Started spironolactone 25 mg daily per cardiology. - Continue aspirin 81 mg daily and pravastatin 10 mg daily at bedtime. - Strict I / O monitoring and daily standing weights. - ECHO shows ejection fraction of 15-20%, as above. - Carvedilol discontinued due to decompensated heart failure. Avoid beta- blockers. - BNP on admission was 7614. Continue to check periodically. - IV milrinone gtt at low dose to help with inotropic support and afterload reduction. - Started furosemide IV 60 mg 3 times a day per cardiology. - Coronary angiography once euvolemic and Cr stable and at baseline. - Cardiology consulted and following. We appreciate their time and recommendations. Chronic problems: Hypertension, chronic. - Continue hydralazine 25 mg 3 times a day per cardiology. Diabetes mellitus type II, non-insulin using. Chronic. - Held metformin in the hospital for now. - Will consider adding Canagliflozin. Morbid obesity, chronic. - BMI 46.8. - Apparently patient has lost a considerable amount weighted, used to weigh over 400 pounds and now weighs 374 pounds much of which is water weight due to anasarca. High risk medications: Acetaminophen for mild pain when necessary. Bowel regimen Senna and MiraLAX scheduled and PRN. Zofran when necessary for nausea and vomiting. SubQ heparin held for now. SCDs in place. Dispo: Home when medically stable. Patient is likely to be here several more days. . Pain Evaluation: Adequate Pain Control GI Prophylaxis: Proton Pump Inhibitor VTE Prophylaxis: Sub-Q Heparin (Unfractionated) VTE Mechanical Devices: Intermittant Pneumatic CD Resuscitation Status: CPR: Attempt Resuscitation Attending Statement The patient was seen and examined together with Dr. Leblanc on 05-09-16 and I agree with the history, exam and plan as outlined in the note above. LEONOR LEBLANC DO May 09, 2016 08:28 Swetha Willis MD May 10, 2016 16:01
[2016-05-10] VITALS (11 sets, daily range): BP systolic 89–124; BP diastolic 45–74; PULSE 86–102; RESP 16–28; O2SAT 94–99
--- NOTE | 2016-05-10 05:00 | NUR ---
Cardiac, , RESP TEL SR HR 90's PVCs, QTc 0.45, Milrinone gtt at 0.214 mcg/kg/min, Lasix 60 mg IV, denies CP or pressure, No SOB noted, speaks in full sentences, tolerated taking shower well, LS coarse, Pitting edema LE 1-2+ is decreasing, weight 153.1 kg down 6 kg from yesterday, maintains fluid restriction 1500 mls/24 hours, see flow records. During day RA sats 99 to 100 % when sleeps desats low 80's for brief second, states pt would stop breathing at home at night, O2 at 2l placed on at HS, with continuous pulse ox.
[2016-05-10 06:00] LABS: BASOPHILS % (AUTO) 0.9 % (0-3); EOSINOPHILS % (AUTO) 3.1 % (0-5); MONOCYTES % (AUTO) 14.3 % (4-12); Mean Corpuscular Hemoglobin 26.9 pg (27.0-35.0); Mean Corpuscular Volume 83.4 fL (81-100); NEUTROPHILS % (AUTO) 57.5 % (40-74); Platelet Count 234 bil/L (150-400)
[2016-05-10] MEDS: Insulin LISPRO 300 Unit/3 mL Inj SUBQ SCH ×4 (08:00→20:02)
[2016-05-10] MEDS: Pantoprazole 20 mg ER24 Tablet PO SCH (08:09)
[2016-05-10] MEDS: Furosemide 10 mg/mL 2 mL Inj IV SCH ×3 (08:10→19:54)
[2016-05-10] MEDS: Fluticasone 100 mCg Inhaler INHALATION SCH ×2 (08:11→19:45)
[2016-05-10] MEDS: Albuterol-Ipratropium 3 mL Inhalation Solution NEB SCH (08:42)
[2016-05-10] MEDS: MILRINONE IV SCH ×4 (09:00→19:38)
[2016-05-10] MEDS: D5W IV SCH ×4 (09:00→19:38)
[2016-05-10] MEDS ORDERED: acetaZOLAMIDE 250 mg Tablet PO ONE (10:25)
--- NOTE | 2016-05-10 10:29 | PCM.PNCARD ---
Subjective Date of service May 10, 2016 Chief Complaint dyspnea from HF History of Present Illness 56 yo obese M h/o DM, HTN, and remote self reported of HF that resolved in 2010 admitted with dyspnea from HFrEF. Subjective: Patient was started on milrinone gtt 05/07/2016 and has had good diuresis since then (lost 17 kg from peak weight). His breathing continues to improve and is able to speak without dyspnea. He does have mild lightheadedness on getting up occasionally. PROBLEM LIST: # HFrEF: dilated LV (LVEDD 7.3cm) with EF 15%. Normal LVEF 2010 but it was low in the per patient # Mitral regurgitation, moderate to severe # Diabetes # HTN # HLD # Obesity # H/O GIB from duodenal ulcer 2010 that has resolved Exam Vital Signs Vital Sign - Last Date Time Temp Pulse Resp B/P Pulse Ox O2 Delivery O2 Flow Rate FiO2 05/10/16 09:00 82 05/10/16 08:42 16 99 Room Air 05/10/16 08:00 36.9 124/65 2.00 05/08/16 03:24 98 Intake and Output 05/09/16 05/09/16 05/10/16 Cumulative From/Thru 15:00 23:00 07:00 05/02/16 12:09 - 05/10/16 05:12 Intake Total 1000 ml 495 ml 03057 ml Output Total 4950 ml 4125 ml 11535 ml Balance -3950 ml -3630 ml -01151 ml Intake Oral 1000 ml 250 ml 96910 ml IV Total 245 ml 1375 ml Output Urine Total 4950 ml 4125 ml 91273 ml # Voids 0 # Bowel Movements 1 2 General appearance: No apparent distress, obese, pleasant, cooperative HEET: Normocephalic atraumatic, no scleral icterus, tongue midline, mucous membranes moist Neck: supple Cardiovascular: RRR, S1 and S2, +JVD (less than yesterday), 2+ LE edema b/l Respiratory: fair aeration, coarse b/l Abdomen: Soft, nontender, obese, + bowel sounds Lab and Diagnostics Result Diagram: 05/10/16 0530 05/10/16 0530 X-Rays, CTs and MRIs Echo 05/03/2016: Severely dilated left ventricle with EF 15-20%, moderately dilated right ventricle with mildly reduced function, moderate to severe mitral regurgitation Assessment & Plan Assessment 56 yo obese M h/o DM, HTN, and remote self reported of HF that resolved in 2010 admitted with dyspnea and anasarca from HFrEF: # HFrEF: dilated LV (LVEDD 7.3cm) with EF 15%. Normal LVEF 2010 but it was low in the per patient. He is NYHA class IIIb. He remains hypervolemic on exam but has responded nicely to milrinone and IV lasix with 17kgs water weight loss since admission. Etiology of HF is unclear but ischemic cardiomyopathy is high on the differential given significant risk factors (uncontrolled diabetes, HTN, HLD). Idiopathic dilated cardiomyopathy also possible. Plan: - Monitor closely in the telemetry - Avoid beta-blockers at this time - Continue IV milrinone gtt at low dose to help with inotropic support and afterload reduction - Continue furosemide 60mg IV tid - Uptitrate lisinopril 5mg qhs to 5mg bid - Continue spironolactone 25mg qday - Stop hydralazine as lisinopril is being uptitrated and patient has mild lightheadedness with hydralazine - Given one dose of acetazolamide 250mg PO X1 to help with rising CO2. - Coronary angiography once euvolemic and Cr stable and at baseline. Would also consider doing RHC along with coronary angiography. Will stop milrinone 12 hours before doing RHC to determine if the patient is low flow HF # Mitral regurgitation, moderate to severe: likely due dilated LV. Continue to monitor. # Diabetes: defer to PCP. # HTN: well controlled. # HLD: reasonable control. - Continue pravastatin 10mg qhs # Obesity: patient educated to work on loosing weight as outpatient # H/O GIB from duodenal ulcer 2010 that has resolved. Hb/HCt stable during the hospitalization. Continue to monitor. Problems: Pain Evaluation: Adequate Pain Control GI Prophylaxis: Proton Pump Inhibitor VTE Prophylaxis: Sub-Q Heparin (Unfractionated) VTE Mechanical Devices: Intermittant Pneumatic CD Resuscitation Status: CPR: Attempt Resuscitation Yaneth Orourke MD May 10, 2016 10:29
[2016-05-10] MEDS ORDERED: Albuterol-Ipratropium 3 mL Inhalation Solution NEB PRN (14:30)
--- NOTE | 2016-05-10 17:07 | NUR ---
O2/output/BP The pt was able to remain on RA while awake, with sats holding in the mid to upper 90's. When asleep, the pt continuously dropped into the low 80's, and required 2L NC. The pt and his have been educated on sleep apnea, and the pt is understanding of the need for proper sleep positioning and O2 use. The pt's output decreased today, which is an expected finding. Per Dr. Orourke, the target blood pressure for the pt is low 100's to 90's for maximum CHF management.
--- NOTE | 2016-05-10 17:50 | PCM.PNMED ---
Subjective Date of Service May 10, 2016 Subjective Jaspal Flynn Sr is a 56-year-old male with past medical history significant for congestive heart failure, secondary to systolic, diabetes mellitus type II, asthma, and hypertension who presented to his [facility] ED due to worsening lower extremity edema and dyspnea. Hospital day #9. Overnight: There were no acute events. Telemetry overnight: Sinus rhythm, heart rate 80-90s, with triplet PVC's. The patient is resting comfortably on the side of the bed. He reports that his breathing and edema are much improved. He has ample urine output. He is eliminating without difficulty. He reports normal appetite. He denies headache , chest pain, shortness of breath, abdominal pain, nausea, vomiting, fever, chills, dysuria, or diarrhea. . Exam Vital Signs Vital Sign - Last Date Time Temp Pulse Resp B/P Pulse Ox O2 Delivery O2 Flow Rate FiO2 05/10/16 16:45 36.5 86 28 96/62 94 Room Air 05/10/16 11:37 2.00 05/08/16 03:24 98 Intake and Output 05/09/16 05/09/16 05/10/16 Cumulative From/Thru 15:00 23:00 07:00 05/02/16 12:09 - 05/10/16 05:12 Intake Total 1000 ml 495 ml 90762 ml Output Total 4950 ml 4125 ml 02953 ml Balance -3950 ml -3630 ml -42719 ml Intake Oral 1000 ml 250 ml 96565 ml IV Total 245 ml 1375 ml Output Urine Total 4950 ml 4125 ml 47157 ml # Voids 0 # Bowel Movements 1 2 Exam General: Patient is laying supine with head elevated approximately 15-20 this morning. He states that he is able to lay flatter more comfortably than before. HEENT: Normocephalic, atraumatic. Pupils equal round reactive to light. Extraocular muscles are intact. Anicteric sclera. Subconjunctival mucosa is pink. Ears and nose are unremarkable. Oropharynx is clear without exudates. Neck: Supple, no lymphadenopathy or thyromegaly. No JVD. Chest: Diminished breath sounds bilaterally. Clear to auscultation without rales , rhonchi, or wheeze. Heart: Regular rhythm and rate, heart tones distant, grade 2/6 systolic murmur heard best at the left sternal border. There is no rub or gallop appreciated. Abdomen: Abdomen is morbidly obese, soft, nontender, no organomegaly or masses were appreciated. Anasarca and abdominal pitting edema much improved. Extremities: Are symmetrical and well perfused. There is 2+ pitting edema bilaterally to the knee, there is no cellulitis, no rash clearly evident. Neurologic: There are no focal neurological deficits. Cranial nerves II through XII are intact. There are no sensory or motor deficits. Psychiatric: Patients mood is calm and shows no sign of agitation. . IVs and Medications Medications Reviewed: Medications were reviewed in detail Lab and Diagnostics Result Diagram: 05/10/1652905/10/16529 Microbiology Urine culture shows no growth to date. . X-Rays, CTs and MRIs X-RAY CHEST ONE VIEW, PORTABLE IMPRESSION: Mild cardiomegaly and interstitial prominence suggesting fluid overload. Dictated by: Lubna Nye M.D. on 05/02/2016 at 13:05 Approved by: Lubna Nye M.D. on 05/02/2016 at 13:05 . 12-lead ECG EKG: Sinus tachycardia, heart rate 104, normal axis, normal intervals, poor R- wave progression, no pathological Q waves or acute ischemic changes such as ST elevation or depression. . Cardiac Echo Impressions Echocardiogram Interpretation Summary: The left ventricle is severely dilated. There is no thrombus. The ejection fraction is estimated to be 15-20%. Compared to the prior exam, left ventricular function is markedly decreased. The right ventricle is moderately dilated. Right ventricular systolic function is moderately reduced. The left atrium is moderately dilated. There is moderate to severe mitral regurgitation. There is mild to moderate tricuspid regurgitation. Right ventricular systolic pressure is estimated to be 30 mmHg plus the clinically estimated CVP which cannot be estimated on this exam Electronically signed by: Kd Solares on Reading Physician:05/04/2016 12:55 PM . Assessment & Plan Jaspal Flynn Sr is a 56-year-old male with past medical history significant for congestive heart failure, secondary to systolic, diabetes mellitus type II, asthma, and hypertension who presented to his [facility] ED due to worsening lower extremity edema and dyspnea. Hospital day #9. 1 Acute on chronic primarily systolic biventricular CHF exacerbation, present on admission. Active. - NYHA class IV. - Likely due to medication non-compliance. We have requested the records from the house from [place] where he was diagnosed with congestive heart failure and a very low ejection fraction less than 10%, according to the patient. These records were filed a different building in over 10 years ago and will be here likely on May 10. - He remains hypervolemic on exam but his BUN/Cr have risen with diuresis that is probably due to cardiorenal syndrome (ACC stage D). - Etiology of heart failure is unclear but ischemic cardiomyopathy is high on the differential given significant risk factors (uncontrolled diabetes, HTN, HLD ). Idiopathic dilated cardiomyopathy also possible. - Monitor closely on telemetry. - Continue to uptitrate lisinopril from 5 mg daily to 5 mg twice a day. - Acetazolamide 2 given for rising CO2 per cardiology. - Digoxin has been added by cardiology. Will need to follow digoxin levels periodically. - Continue spironolactone 25 mg daily, per cardiology. - Continue aspirin 81 mg daily and pravastatin 10 mg daily at bedtime. - IV milrinone gtt at low dose to help with inotropic support and afterload reduction. - Continue furosemide IV 60 mg 3 times a day, per cardiology. - Carvedilol discontinued due to decompensated heart failure. Avoid beta- blockers. - Strict I&O monitoring with daily standing weights. - ECHO shows ejection fraction of 15-20%, as above. - BNP on admission was 7614. Continue to check periodically. - DuoNeb every 6 hours and AccuNeb every 2 hours as needed for shortness of breath. - Coronary angiography once euvolemic and Cr stable and at baseline. Would also consider doing RHC along with coronary angiography. Will stop milrinone 12 hours before doing RHC to determine if the patient is low flow HF, per cardiology. - Cardiology consulted and following. We appreciate their time and recommendations. Chronic problems: Hypertension, chronic. - Discontinued hydralazine 25 mg due to dizziness and initiation of lisinopril, per cardiology. - Continue uptitrate lisinopril from 5 mg daily to 5 mg twice a day, as above. Diabetes mellitus type II, non-insulin using. Chronic. - Hemoglobin A1c 7.7%. - Held metformin in the hospital for now. - Continue medium dose correctional scale insulin. Morbid obesity, chronic. - BMI 46.8. - Apparently patient has lost a considerable amount of weight. He reports he used to weigh over 400 pounds and now weighs 374 pounds much of which is water weight due to anasarca. High risk medications: NONE Acetaminophen for mild pain when necessary. Bowel regimen Senna and MiraLAX scheduled and PRN. Zofran when necessary for nausea and vomiting. Dispo: Home when medically stable. Patient is likely to be here several more days. . GI Prophylaxis: Proton Pump Inhibitor VTE Prophylaxis: Sub-Q Enoxaparin VTE Mechanical Devices: Intermittant Pneumatic CD Resuscitation Status: CPR: Attempt Resuscitation Attending Statement The patient was seen and examined together with Dr. Slater on 05-10-16 and I agree with the history, exam and plan as outlined in the note above. Susan Slater DO May 10, 2016 17:50 Swetha Willis MD May 11, 2016 15:07
[2016-05-10] MEDS ORDERED: Albuterol 2.5 mg/3 mL Inhalation Solution NEB PRN (18:00)
[2016-05-11] VITALS (8 sets, daily range): BP systolic 102–118; BP diastolic 64–75; PULSE 77–96; RESP 16–24; O2SAT 94–98
[2016-05-11 04:41] LABS: BASOPHILS % (AUTO) 0.8 % (0-3); MONOCYTES % (AUTO) 15.3 % (4-12); Mean Corpuscular Hemoglobin 27.1 pg (27.0-35.0); Mean Corpuscular Volume 83.5 fL (81-100); NEUTROPHILS % (AUTO) 54.4 % (40-74); Platelet Count 240 bil/L (150-400)
[2016-05-11] MEDS: D5W IV SCH ×2 (04:43)
[2016-05-11] MEDS: MILRINONE IV SCH ×2 (04:43)
[2016-05-11] MEDS ORDERED: DEXTROSE 5% IV SCH (04:45)
[2016-05-11] MEDS ORDERED: MILRINONE IV SCH (04:45)
[2016-05-11] MEDS: Insulin LISPRO 300 Unit/3 mL Inj SUBQ SCH ×4 (08:00→21:13)
[2016-05-11] MEDS: Pantoprazole 20 mg ER24 Tablet PO SCH (08:27)
[2016-05-11] MEDS ORDERED: acetaZOLAMIDE 250 mg Tablet PO ONE (08:30)
[2016-05-11] MEDS: Fluticasone 100 mCg Inhaler INHALATION SCH ×2 (08:33→21:17)
[2016-05-11] MEDS: Furosemide 10 mg/mL 2 mL Inj IV SCH (08:33)
[2016-05-11] MEDS ORDERED: 0.9% Sodium Chloride 1,000 ML IV ONE (10:13)
--- NOTE | 2016-05-11 10:56 | PROG NOTE ---
[address] [address] PROGRESS NOTE PATIENT: WIL DIAS : 1960 MR#: [id number] ADMIT: 05/02/2016 JOB ID: [id number] DATE: 05/11/2016 CARDIOLOGY PROGRESS NOTE: SUBJECTIVE: The patient says his edema is better. In particular his scrotal edema is much improved. He has no complaints today. OBJECTIVE: Vital Signs: Temperature 36.6, blood pressure 102/64, pulse 77, up to 96. He is satting 96%-98% on 2 liters nasal cannula. Overweight man lying comfortably at a 30 degree angle in no apparent distress. Eyes: No scleral icterus. Heart: Normal S1, S2. No murmurs. Lungs with crackle at left lung base. Abdomen: Soft, positive bowel sounds. Extremities: Mild bilateral edema and some leg erythema. Telemetry: No events. Normal sinus rhythm. LABORATORIES: Reviewed. Hematocrit is 35%. Platelets are normal. Creatinine 1.4 up from 1.2 yesterday. Potassium was 4.1. Magnesium has not been checked since May 08. Lipid panel was reviewed, was normal as of May 06, 2016. I's and O's: He put out 4.8 L out more than in and his weight on the standing scale is 149.9 kg and on admission on the standing scale it was 167 kg so he is down 18 kg since admission. Plan. CURRENT MEDICATIONS: 1. Aspirin 81 mg daily. 2. Lasix 60 mg IV. 3. Milrinone 0.2 mg/hour. 4. Spironolactone 25 mg daily. 5. Lisinopril 5 mg twice a day. 6. Lovenox 40 mg subcu daily. 7. Hydralazine 25 mg 3 times a day. ASSESSMENT AND PLAN: A 56-year-old with cardiomyopathy. He says he has had this problem before about eight years ago and I requested those records from [facility] in [place]. Medical management of heart failure. Reduce Lasix from 60 mg IV three times a day to 60 mg IV once a day. Will stop the milrinone drip because I think he is already dry and euvolemic and he already started developing evidence of contraction alkalosis with carbon dioxide of 33. Continue spironolactone and lisinopril. Stop the hydralazine due to dizziness. I think it would be also reasonable to start him on digoxin. I will probably do that tomorrow once the milrinone sort of wears out of his system and his kidney function can be confirmed to be back to normal. Heart failure workup. I plan to do a right and left heart catheterization tomorrow. Orders have been placed. I also plan to do some labs including ferritin, HIV test, SPEP, UPEP. Thank you for the opportunity to evaluate him.
--- NOTE | 2016-05-11 14:24 | NUR ---
Headache PT c/o headache 08/15 but tolerable. Offered Tylenol but he said he will wait, just wanting to rest. Will continue to monitor.
--- NOTE | 2016-05-11 18:46 | PCM.PNMED ---
Subjective Date of Service May 11, 2016 Subjective Jaspal Flynn Sr is a 56-year-old male with past medical history significant for congestive heart failure, secondary to systolic, diabetes mellitus type II, asthma, and hypertension who presented to his [facility] ED due to worsening lower extremity edema and dyspnea. Hospital day #10. No acute events overnight. Per nursing, patient maintained SpO2 in mid to upper 90s on room air while awake yesterday. Still requiring 2liters nasal cannula while asleep. Exam Vital Signs Vital Sign - Last Date Time Temp Pulse Resp B/P Pulse Ox O2 Delivery O2 Flow Rate FiO2 05/11/16 04:43 90 05/11/16 02:55 37.0 24 102/64 97 Nasal Cannula 2.00 05/08/16 03:24 98 Intake and Output 05/10/16 05/10/16 05/11/16 Cumulative From/Thru 15:00 23:00 07:00 05/02/16 12:09 - 05/11/16 04:49 Intake Total 1023 ml 369 ml 74449 ml Output Total 2200 ml 3525 ml 23148 ml Balance -1177 ml -3156 ml -75959 ml Intake Oral 860 ml 250 ml 25015 ml IV Total 163 ml 119 ml 1657 ml Output Urine Total 2200 ml 3525 ml 02688 ml # Voids 0 # Bowel Movements 2 Exam General: Alert and oriented, in no acute distress. Appropriately interactive. HEENT: Normocephalic, atraumatic.PERRLA, Anicteric sclera. Oropharynx is clear without exudates. Neck: Supple, no lymphadenopathy or thyromegaly. No JVD. Chest: Diminished breath sounds bilaterally. Clear to auscultation without rales , rhonchi, or wheeze. Heart: Regular rhythm and rate, heart tones distant, grade 2/6 systolic murmur heard best at the left sternal border. Abdomen: Abdomen is morbidly obese, soft, nontender, no organomegaly or masses were appreciated. Anasarca and abdominal pitting edema Extremities: Well perfused, with 1+ pitting edema bilaterally to the knee, no rashes Neurologic: Cranial grossly intact. No focal neurological deficits. IVs and Medications Medications Reviewed: Medications were reviewed in detail Lab and Diagnostics White Blood Count 6.5, Red Blood Count 4.17, Hemoglobin 11.3, Hematocrit 34.8, Mean Corpuscular Volume 83.5, Mean Corpuscular Hemoglobin 27.1, Mean Corpuscular Hemoglobin Concent 32.5, Red Cell Distribution Width 15.5, Platelet Count 240, Neutrophils (%) (Auto) 54.4, Lymphocytes (%) (Auto) 23.5, Monocytes ( %) (Auto) 15.3, Eosinophils (%) (Auto) 6.0, Basophils (%) (Auto) 0.8 Sodium Level 135, Potassium Level 4.1, Chloride Level 93, Carbon Dioxide Level 33, Blood Urea Nitrogen 31, Creatinine 1.40, Estimat Glomerular Filtration Rate 56, Glucose Level 128, Calcium Level 9.1 Result Diagram: 05/11/1642905/11/16429 Microbiology Urine culture shows no growth to date. . X-Rays, CTs and MRIs X-RAY CHEST ONE VIEW, PORTABLE IMPRESSION: Mild cardiomegaly and interstitial prominence suggesting fluid overload. Dictated by: Lbuna Nye M.D. on 05/02/2016 at 13:05 Approved by: Lubna Nye M.D. on 05/02/2016 at 13:05 . 12-lead ECG EKG: Sinus tachycardia, heart rate 104, normal axis, normal intervals, poor R- wave progression, no pathological Q waves or acute ischemic changes such as ST elevation or depression. . Cardiac Echo Impressions Echocardiogram Interpretation Summary: The left ventricle is severely dilated. There is no thrombus. The ejection fraction is estimated to be 15-20%. Compared to the prior exam, left ventricular function is markedly decreased. The right ventricle is moderately dilated. Right ventricular systolic function is moderately reduced. The left atrium is moderately dilated. There is moderate to severe mitral regurgitation. There is mild to moderate tricuspid regurgitation. Right ventricular systolic pressure is estimated to be 30 mmHg plus the clinically estimated CVP which cannot be estimated on this exam Electronically signed by: Kd Solares on Reading Physician:05/04/2016 12:55 PM . Assessment & Plan Jaspal Flynn Sr is a 56-year-old male with past medical history significant for congestive heart failure, secondary to systolic, diabetes mellitus type II, asthma, and hypertension who presented to his [facility] ED due to worsening lower extremity edema and dyspnea. Hospital day #10. 1 Acute on chronic CHF exacerbation (NYHA class IV), present on admission. Active. - Likely due to medication non-compliance. - ECHO shows ejection fraction of 15-20%, as above. - BNP on admission was 7614 and trending down. - Continue spironolactone, lisinopril, aspirin and statin. Continue to hold beta -carline - Cardiology consulted, recommendations as follows: - Decrease Furosemide to 60mg IV daily. - Stop milrinone drip and hydralazine - Considering starting Digoxin - Right & left heart cath tomorrow. - Strict I&O monitoring, daily standing weights and continue telemetry. - Bronchodilators q2 prn for shortness of breath 2. Chronic hypertension, present on admission. Active. - Continue cardiac medications as above, per Cardiology. 3. Chronic Diabetes mellitus type II, non-insulin using. present on admission. Active - Hemoglobin A1c 7.7%. - Continue to hold metformin - Continue medium dose correctional scale insulin. 4. Chronic Morbid obesity, present on admission. Active. - BMI 46.8. - Down from 400lbs to 374lbs, attributable to diuresis. High risk medications: NONE Acetaminophen for mild pain when necessary. Bowel regimen Senna and MiraLAX scheduled and PRN. Zofran when necessary for nausea and vomiting. Dispo: Home when medically stable. Patient is likely to be here several more days. . Pain Evaluation: Adequate Pain Control GI Prophylaxis: Proton Pump Inhibitor VTE Prophylaxis: Sub-Q Enoxaparin VTE Mechanical Devices: Intermittant Pneumatic CD Resuscitation Status: CPR: Attempt Resuscitation Attending Statement The patient was seen and examined together with Dr. Hooks on 05-11-16 and I agree with the history, exam and plan as outlined in the note above. Wendi Hooks DO May 11, 2016 06:54 Swetha Willis MD May 12, 2016 15:35
[2016-05-12] VITALS (21 sets, daily range): BP systolic 103–116; BP diastolic 51–82; PULSE 84–96; RESP 19–31; O2SAT 93–98
[2016-05-12] MEDS ORDERED: 0.9% Sodium Chloride 1,000 ML IV ONE (06:00)
[2016-05-12] MEDS ORDERED: 0.9% Sodium Chloride 1,000 ML ONE (07:55)
[2016-05-12] MEDS ORDERED: Heparin 5,000 Units/500 mL NS Premix IV ONE ×2 (07:55→09:42)
[2016-05-12] MEDS: Insulin LISPRO 300 Unit/3 mL Inj SUBQ SCH ×4 (08:00→20:46)
[2016-05-12] MEDS: Pantoprazole 20 mg ER24 Tablet PO SCH (08:18)
[2016-05-12] MEDS: Fluticasone 100 mCg Inhaler INHALATION SCH ×2 (08:19→20:40)
[2016-05-12] MEDS ORDERED: Furosemide 10 mg/mL 2 mL Inj IV SCH (08:30)
[2016-05-12] MEDS ORDERED: 0.9% Sodium Chloride 50 ML ONE (08:42)
[2016-05-12] MEDS ORDERED: fentaNYL-PF 50 mCg/mL 2 mL Inj ONE (08:43)
--- NOTE | 2016-05-12 09:00 | NUR ---
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 Lasix, spirolactone and lovenox withheld.
[2016-05-12] MEDS ORDERED: Heparin 1,000 Units/500 mL NS Premix IV ONE (09:42)
[2016-05-12] MEDS ORDERED: HYDROcodone-APAP 5-325 mg Tablet PO PRN (10:25)
[2016-05-12] MEDS ORDERED: Atropine 1 mg/10 mL (Code) Syringe IVPUSH PRN (10:25)
--- NOTE | 2016-05-12 10:32 | CS94 ---
[address] [address] DIAGNOSTIC CARDIAC CATHETERIZATION PATIENT: WIL DIAS : 1960 MR#: [id number] ADMIT: 05/02/2016 JOB ID: [id number] SERVICE DATE: 05/12/2016 CHIEF COMPLAINT: Cardiomyopathy. PROCEDURES PERFORMED: Right and left heart catheterization. METHOD: Following informed consent, patient was prepped and draped in usual sterile fashion. A 6-Chilean sheath was placed in right common femoral vein. A 6-Chilean sheath was placed in right common femoral artery. Sheath placement was performed under ultrasound and confirmed via femoral angiogram. JL4, JR4 catheters were used to engage left main and right coronary artery ostium, respectively. Hand injection craniocaudal angulation was used to obtain selective coronary angiograms. All exchanges were performed over a wire. Pigtail was advanced in left ventricle. Left ventricular end-diastolic pressure was recorded. At this point in time, I attempted to advance the Superior-Leonardo catheter into the pulmonary artery. It was technically challenging because the catheter is floppy. I had to use the regular Superior wire, and that did not help, so then I had to use 0.025 stiff Amplatz wire. Eventually, after some catheter manipulation, the catheter was placed into the right pulmonary artery. Cardiac output was computed via Asad and thermodilution method. Hemodynamic measurements were obtained by putting the Superior-Leonardo catheter into the pulmonary capillary wedge pressure position, pulmonary artery position, right ventricular position, and right atrial position. Hemostasis was obtained via ExoSeal closure device, and then there were no complications immediately postprocedure. FINDINGS: Hemodynamics: Patient was in normal sinus rhythm, 95 beats per minute. Here are the hemodynamics: Right atrial pressure was 20. Right ventricular pressure was 50/17 with end diastolic pressure of 25 mmHg. Pulmonary artery pressure was 50/35 with mean of 40 mmHg, and pulmonary capillary wedge pressure was 40 mmHg. Left ventricular end-diastolic pressure was also 40 mmHg, and there is no evidence of aortic stenosis based on pullback. Left ventricular systolic pressure was 106. Cardiac output computed via Asad method was 7 L/min with cardiac index of 2.6 L/min per m2. Cardiac output computed via thermodilution method was 5.9 L/min with cardiac index of 2.21 L/minute per m2. Mixed venous sat was 65. Femoral angiogram: The right common femoral artery gives rise to SFA and profunda. Patient has a low bifurcation. The sheath enters the right common femoral artery at the lower third of the femoral head, and there is no evidence of contrast extravasation or dissection and no evidence of vascular disease on the groin shot. Coronary angiograms: Left main is a normal caliber vessel. It is somewhat short. It gives rise to LAD, ramus intermedius, and circumflex. LAD gives rise to a first large diagonal branch, second large diagonal branch. Then, it gives rise to a fairly large third diagonal branch and then multiple septal perforators. The LAD wraps all the way around the apex and supplies the distal third of the inferior wall. Circumflex is a codominant vessel. It gives rise to a first small OM branch, a second large OM branch, third large OM branch which basically functions as a PDA. Then, fourth fairly large OM branch that functions as a posterolateral branch. There is no evidence of hemodynamically significant coronary artery disease. Ramus intermedius is a large vessel. If it a bifurcating structure. There was no obstructive lesion seen. Right coronary artery is a codominant vessel. It gives rise to a posterolateral branch and a PDA. There are no obstructive lesions seen. IMPRESSION: 1. Nonischemic cardiomyopathy. 2. Very high filling pressure and reduced cardiac index of 2.2 L/minute per m2 by thermodilution method. PLAN: Continue diuresis. Start patient on digoxin and enroll patient in the outpatient CHF monitoring program. Thank you for the opportunity to evaluate him.
[2016-05-12 10:50] LABS: Mean Corpuscular Hemoglobin 26.7 pg (27.0-35.0); Mean Corpuscular Volume 84.4 fL (81-100)
--- NOTE | 2016-05-12 11:53 | PROG NOTE ---
[address] [address] PROGRESS NOTE PATIENT: WIL DIAS : 1960 MR#: [id number] ADMIT: 05/02/2016 JOB ID: [id number] DATE: 05/12/2016 SUBJECTIVE: This morning the patient says he is doing fine. He underwent cardiac catheterization, which, unfortunately, demonstrated severe cardiomyopathy but it is nonischemic. His cardiac index is 2.2 L/minute. We attempted to get records from [facility] in [place] but, unfortunately, they were not available for review. PHYSICAL EXAMINATION: Vital signs: Temperature 36.5, blood pressure 103/64 up to 114/75, pulse 88 up to 96 beats per minute. She is saturating 93% to 97% on room air. Overweight man in no apparent distress. Eyes: No scleral icterus. Heart: Normal S1, S2. No murmurs. Lungs: Clear to auscultation anteriorly. Abdomen is soft, positive bowel sounds. No hepatosplenomegaly. Extremities are warm, well perfused. No clubbing, cyanosis, or edema. Skin: No rashes or lesions. LABORATORIES: Reviewed. His CBC is normal. His creatinine is 1.2. His potassium is 5.1; we will have to keep a close eye on it. CURRENT MEDICATIONS: 1. Aspirin 81 mg daily. 2. Pravastatin 10 mg daily. 3. Torsemide 60 mg daily. 4. Spironolactone 25 mg daily. 5. Lovenox subcu for DVT prophylaxis. 6. Lisinopril 5 mg twice a day. 7. Digoxin 0.125 mg daily. ASSESSMENT AND PLAN: This is a delightful 56-year-old man admitted with acute decompensated heart failure. His weight currently is 149 kg. His weight on admission was 169 kg, so he is 20 kg down following aggressive diuresis, facilitated with milrinone. He is doing better. The plan is to try to transition him to p.o. drugs, and anticipate discharge home tomorrow. I had a detailed conversation with the patient and his Melina about a therapeutic lifestyle change program with weight loss and heart healthy exercise. Also, we talked about a low sodium diet, which is the cornerstone of his treatment and medication compliance, and I explained to the that he will need at least five heart medications when he leaves the premises including aspirin, torsemide, spironolactone, lisinopril and digoxin and also, as he gets a little bit better, we are going to initiate a beta carline. I do not know if he will be able to tolerate it just yet. Thank you for the opportunity to evaluate this patient.
--- NOTE | 2016-05-12 14:00 | NUR ---
BP/Torsemide BP 80s/50s -- 50mg torsemide withheld. aware.
--- NOTE | 2016-05-12 16:45 | PCM.PNMED ---
Subjective Date of Service May 12, 2016 Subjective Jaspal Flynn Sr is a 56-year-old male with past medical history significant for congestive heart failure, secondary to systolic, diabetes mellitus type II, asthma, and hypertension who presented to his [facility] ED due to worsening lower extremity edema and dyspnea. Hospital day #11. Overnight: No overnight events. The patient is resting comfortably on the side of the bed preparing for Cardiac cath. He is urinating frequently. He reports normal appetite. He denies chest pain, shortness of breath on current O2, abdominal pain, nausea, vomiting, fever , chills, dysuria, or diarrhea. . Exam Vital Signs Vital Sign - Last Date Time Temp Pulse Resp B/P Pulse Ox O2 Delivery O2 Flow Rate FiO2 05/12/16 16:36 Supplement Oxygen 05/12/16 16: 36.7 110/77 98 2.00 05/12/16 12:46 93 05/12/16 12:00 21 05/08/16 03:24 98 Intake and Output 05/11/16 05/11/16 05/12/16 Cumulative From/Thru 15:00 23:00 07:00 05/02/16 12:09 - 05/12/16 04:41 Intake Total 760 ml 600 ml 96451 ml Output Total 2400 ml 1000 ml 71457 ml Balance -1640 ml -400 ml -92475 ml Intake Oral 692 ml 600 ml 24761 ml IV Total 68 ml 1725 ml Output Urine Total 2400 ml 1000 ml 93815 ml # Voids 7 7 # Bowel Movements 0 2 Exam General: Patient is laying supine with head elevated approximately 15-20 this morning. He states that he is able to lay flatter more comfortably than before. HEENT: Head is atraumatic normocephalic. Eyes: Pupils are equally round and reactive to light and accommodation. Extraocular muscles are intact. Sclera are white anicteric. Subconjunctival mucosa is pink. Ears and nose are unremarkable. Oropharynx: There are no mucosal lesions, there is no thrush, there is no pharyngitis. Neck: Supple, there are no nodes, or masses or tenderness. Chest: Is clearer to auscultation and percussion. However, there is still diminished breath sounds bilaterally. There are no rales, rhonchi, wheezes or rubs. Heart: Rate, rhythm is regular. Heart tones are distant. However, there is a grade 2/6 systolic murmur heard best at the left sternal border. There is no rub or gallop appreciated. Abdomen: Good bowel sounds are present. Abdomen is morbidly obese, soft, nontender, no organomegaly or masses were appreciated anasarca and abdominal pitting edema much improved overnight. Extremities: Are symmetrical and well perfused. There is 3+ pitting edema bilaterally to the knee, there is no cellulitis, no rash clearly evident. Neurologic: There are no focal neurological deficits. Cranial nerves II through XII are intact. There are no sensory or motor deficits. Psychiatric: Patients mood is calm and shows no sign of agitation. IVs and Medications Medications Reviewed: Medications were reviewed in detail Lab and Diagnostics Result Diagram: 05/12/16 1040 05/12/16 1040 Microbiology Urine culture shows no growth to date. . X-Rays, CTs and MRIs X-RAY CHEST ONE VIEW, PORTABLE IMPRESSION: Mild cardiomegaly and interstitial prominence suggesting fluid overload. Dictated by: Lubna Nye M.D. on 05/02/2016 at 13:05 Approved by: Lubna Nye M.D. on 05/02/2016 at 13:05 . 12-lead ECG EKG: Sinus tachycardia, heart rate 104, normal axis, normal intervals, poor R- wave progression, no pathological Q waves or acute ischemic changes such as ST elevation or depression. . Cardiac Echo Impressions Echocardiogram Interpretation Summary: The left ventricle is severely dilated. There is no thrombus. The ejection fraction is estimated to be 15-20%. Compared to the prior exam, left ventricular function is markedly decreased. The right ventricle is moderately dilated. Right ventricular systolic function is moderately reduced. The left atrium is moderately dilated. There is moderate to severe mitral regurgitation. There is mild to moderate tricuspid regurgitation. Right ventricular systolic pressure is estimated to be 30 mmHg plus the clinically estimated CVP which cannot be estimated on this exam Electronically signed by: Kd Solares on Reading Physician:05/04/2016 12:55 PM . Assessment & Plan Jaspal Flynn Sr is a 56-year-old male with past medical history significant for congestive heart failure, secondary to systolic, diabetes mellitus type II, asthma, and hypertension who presented to his [facility] ED due to worsening lower extremity edema and dyspnea. Hospital day #11. 1 Acute on chronic CHF exacerbation (NYHA class IV), present on admission. Active. - Likely due to medication non-compliance. - ECHO shows ejection fraction of 15-20%, as above. - BNP on admission was 7614 and trending down. - Strict I&O monitoring, daily standing weights and continue telemetry. - Bronchodilators q2 prn for shortness of breath - Cardiology consulted, recommendations as follows: - Therapeutic lifestyle change program with weight loss and heart healthy exercise. - Also, we talked about a low sodium diet, which is the cornerstone of his treatment and medication compliance, and I explained to the that he will need at least five heart medications when he leaves the premises including - Anticipate discharge home tomorrow. - Aspirin 81 mg Daily. - Torsemide 60 mg Daily. - Spironolactone 25 mg Daily. - Lisinopril 5 mg Twice a Day. - Digoxin 0.125 mg Daily. - As he gets a little bit better, we are going to initiate a beta carline. - Follow up with cardiology clinic. 2. Chronic hypertension, present on admission. Active. - Continue cardiac medications as above, per Cardiology. 3. Chronic Diabetes mellitus type II, non-insulin using. present on admission. Active. - Hemoglobin A1c 7.7%. - Continue to hold metformin - Continue medium dose correctional scale insulin. 4. Chronic Morbid obesity, present on admission. Active. - BMI 46.8. - Down from 400lbs to 374lbs, attributable to diuresis. High risk medications: NONE Acetaminophen for mild pain when necessary. Bowel regimen Senna and MiraLAX scheduled and PRN. Zofran when necessary for nausea and vomiting. Dispo: Home tomorrow. . Pain Evaluation: Adequate Pain Control GI Prophylaxis: Proton Pump Inhibitor VTE Prophylaxis: Sub-Q Enoxaparin VTE Mechanical Devices: Intermittant Pneumatic CD Resuscitation Status: CPR: Attempt Resuscitation Attending Statement The patient was seen and examined together with Dr. Leblanc on 05-12-15 and I agree with the history, exam and plan as outlined in the note above. LEONOR LEBLANC DO May 12, 2016 16:39 Swetha Willis MD May 13, 2016 12:43
[2016-05-12] MEDS ORDERED: Furosemide 10 mg/mL 10 mL Inj IVPUSH ONE (17:40)
[2016-05-12] MEDS ORDERED: DEXTROSE 5% IV ONE (17:40)
[2016-05-12] MEDS ORDERED: MILRINONE IV ONE (17:40)
--- NOTE | 2016-05-12 18:29 | NUR ---
BP/Ambulation Patient remained alert and oriented x3 throughout shift, up independently, right groin site post lab intern unremarkable with no drainage or hematoma present. Patient hypotensive when brought back from lab intern, 80s/50s (asymptomatic), MD aware. Patient remained supine for approx 1 hour while sleeping, woke and got up to the BR, BP rechecked and found to be 110 systolic. No reports of chest pain, no n/v/d/c or abdominal pain, currently waiting for Primacor infusion from pharmacy to start infusing per cardiology orders.
[2016-05-13] VITALS (13 sets, daily range): BP systolic 89–105; BP diastolic 50–64; PULSE 78–88; RESP 12–24; O2SAT 96–99
--- NOTE | 2016-05-13 03:57 | NUR ---
Cardiac/ Patient tolerating Milrinone gtt well, infusing at 0.2mcg/kg/min, BP stable 90's/60's to 110's/70's, HR NSR in the 80's this shift, tolerated Lasix 60mg over 15 min and BP remained stable, voiding lots of urine and urine is clearer yellow this AM, up in room and independent at bedside, patient denies pain this shift, right groin site soft, clean and dry and denies pain, will continue to monitor, no distress noted, uneventful shift. Addendum: 05/13/16 at 0403 by SOPHIE SNOW RN Amended: Links added.
[2016-05-13 05:35] LABS: Mean Corpuscular Hemoglobin 27.4 pg (27.0-35.0); Mean Corpuscular Volume 83.3 fL (81-100)
[2016-05-13] MEDS ORDERED: Furosemide 10 mg/mL 10 mL Inj IVPUSH SCH ×2 (06:00→09:25)
[2016-05-13] MEDS ORDERED: MILRINONE IV ONE (07:30)
[2016-05-13] MEDS ORDERED: DEXTROSE 5% IV ONE (07:30)
[2016-05-13] MEDS: Insulin LISPRO 300 Unit/3 mL Inj SUBQ SCH ×4 (08:00→23:03)
[2016-05-13] MEDS: Fluticasone 100 mCg Inhaler INHALATION SCH ×2 (08:08→20:42)
[2016-05-13] MEDS: Pantoprazole 20 mg ER24 Tablet PO SCH (08:12)
--- NOTE | 2016-05-13 11:21 | PCM.PNCARD ---
Subjective Date of service May 13, 2016 Chief Complaint SOB History of Present Illness Patient is symptomatically improving. He continues to lose weight on a daily basis. Patient denies any PND orthopnea over the past 2 nights. Subjective: CONSTITUTIONAL: Negative for fever, positive for weight loss . HEENT: Eyes: Negative for glaucoma or cataracts. Ears: Negative pain or loss of hearing. Nose: Negative for nasal congestion. Negative for rhinorrhea or postnasal drip. Positive for snoring. CARDIOVASCULAR: Negative for chest pain or palpitations, near syncope, syncope, PND, or orthopnea. RESPIRATORY: Negative for shortness of breath, hemoptysis, COPD, cough. GASTROINTESTINAL: Negative for nausea, vomiting, diarrhea or heartburn. GENITOURINARY: Negative for dysuria. MUSCULOSKELETAL: Positive for osteoarthritis. SKIN: Negative for rashes. NEUROLOGIC: Negative for headaches, blurry vision, CVA, mental status changes. PSYCHIATRIC: Negative for depression. Negative for daytime sleepiness or insomnia. ENDOCRINE: Positive for diabetes negative for thyroid abnormalities. HEMATOLOGIC: Negative for anemia or blood dyscrasias. Exam Vital Signs Vital Sign - Last Date Time Temp Pulse Resp B/P Pulse Ox O2 Delivery O2 Flow Rate FiO2 05/13/16 08:13 36.7 80 18 98/56 99 Nasal Cannula 1.00 05/08/16 03:24 98 Intake and Output 05/12/16 05/12/16 05/13/16 Cumulative From/Thru 14:59 22:59 06:59 05/02/16 12:09 - 05/13/16 06:52 Intake Total 400 ml 477 ml 04718 ml Output Total 2475 ml 2850 ml 51741 ml Balance -2075 ml -2373 ml -57220 ml Intake Oral 400 ml 400 ml 49860 ml IV Total 77 ml 1802 ml Output Urine Total 2475 ml 2850 ml 55455 ml # Voids 7 # Bowel Movements 2 Additional Information: GENERAL: This is a well-nourished, well-developed patient, in no apparent distress. HEAD: Atraumatic. Normocephalic. No temporal or scalp tenderness. EYES: Pupils equal round and reactive. Extraocular motions intact. No scleral icterus. No injection or drainage. ENT: Nose without bleeding, purulent drainage. Throat without erythema, tonsillar hypertrophy or exudate. NECK: Trachea midline. Obese difficult to assess for JVD. Supple, nontender, no meningeal signs. CARDIOVASCULAR: Regular rate and rhythm distant heart sounds. RESPIRATORY: Mild crackles at the base bilaterally. Breath sounds equal bilaterally. GASTROINTESTINAL: Morbid obese. EXTREMITIES: No clubbing, cyanosis, as it afford lower extremity edema.. No joint tenderness, effusion, or edema noted. No calf tenderness. BACK: Nontender without deformity Lab and Diagnostics Result Diagram: 05/13/1650905/13/16509 Assessment & Plan Problems: (1) Acute on chronic systolic heart failure Plan: Patient seems to be improved symptomatically. I will like to continue with milrinone until tomorrow morning then we will consider discontinuing it. At that time we will start oral heart failure medications such as carvedilol and oral Lasix. I will probably consider starting him on Lasix 40-80 mg once a day. Carvedilol should be restarted at 3.125 mg twice a day. Continue with spironolactone 25 mg once a day and lisinopril 5 mg twice a day. Tentatively will consider discharge on Monday if he is able to tolerate oral medications. Hopefully with aggressive medical therapy for his recurrent systolic heart failure he will recover. After aggressively optimizing his medical therapy the patient will require repeat echocardiogram as an outpatient. Status: Acute ICD Code: I50.23 (2) Hypertension Qualifiers: Hypertension type: essential hypertension Plan: Blood pressure appears be pretty well-controlled as of lately. Status: Chronic ICD Code: I10 (3) Morbid obesity Qualifiers: Obesity type: due to excess calories Qualified Code: E66.01 - Morbid ( severe) obesity due to excess calories Plan: Patient still has chronic morbid obesity but has lost significant amount weight since hospitalization. He has lost nearly 20 kg purely from fluid overload. Status: Chronic ICD Code: E66.01 (4) Sleep apnea Qualifiers: Sleep apnea type: obstructive Qualified Code: G47.33 - Obstructive sleep apnea (adult) (pediatric) Status: Chronic ICD Code: G47.30 (5) Diabetes type 2, uncontrolled Status: Chronic ICD Code: E11.65 (6) Hyperlipidemia Qualifiers: Hyperlipidemia type: Mixed hyperlipidemia Qualified Code: E78.2 - Mixed hyperlipidemia Plan: Patient may continue with his pravastatin as an outpatient. He has no history of coronary artery disease based on recent cardiac catheterization. Status: Chronic ICD Code: E78.5 Pain Evaluation: Adequate Pain Control GI Prophylaxis: Proton Pump Inhibitor VTE Prophylaxis: Sub-Q Enoxaparin VTE Mechanical Devices: Intermittant Pneumatic CD Resuscitation Status: CPR: Attempt Resuscitation Time spent 30 minutes Ta Toribio MD May 13, 2016 11:21
--- NOTE | 2016-05-13 14:13 | NUR ---
Cardiac Pt continues on milrinone gtt at 0.2mcg/kg/min, tolerating well. BP stable 90s/50 to 1-teens/80s. Tolerated lasix this morning, Dr. Toribio decreased the dose from 60mg to 40mg IVP 2/2 BP slightly soft in 90s/50s. 8/10 NORIEGA this morning, relieved with 975mg PO PRN tylenol. 1L NC when sleeping to maintain SpO2 in mid 90s. Up independently in room. Voids per urinal, clear marie urine. Pt AAOx4, pleasant and conversant. Tolerating heart healthy, diabetic diet.
--- NOTE | 2016-05-13 15:53 | NUR ---
NUTRITION ASSESSMENT Assess: 56 yo M w/ CHF. Cardiology following. Pt firmly declined diabetes education on 05/10. PMHx: DM, HTN, CHF, Obesity, Asthma LABS: Reviewed. BUN 32, Cr 1.38, Glu 129, A1c 7.7 MEDICATIONS: Reviewed. Lasix, Protonix, Insulin DIET: Heart Healthy/Consistent Carb, PO 100% GI symptoms/stool: BM x1 05/10 Skin integrity: No issues reported; [place]: 23 ANTHROPOMETRICS: Current Wt: 145.3 kg BMI: 41.1 kg/o2Zlcjq Wt: 169 kg IBW: 86.4 kg Adj BW: 101.1 kg Recent wt changes: Wt loss since admission d/t fluids ESTIMATED NEEDS: Calories: 3963-8524 kcal/d (25-30 kcal/kg/d Adj BW) Protein: 120-155 g/d (1.2-1.5 g/kg/d Adj BW) NUTRITION DIAGNOSIS: 1) Altered nutrition related labs values related to type 2 diabetes as evidenced by A1c of 7.7. INTERVENTION: 1) DM education provided and pt declined MONITOR/EVALUATE: PO intake, Labs, Wt, Nutrition status, POC. Will follow per low nutrition risk guidelines.
--- NOTE | 2016-05-13 16:41 | PCM.PNMED ---
Subjective Date of Service May 13, 2016 Subjective Jaspal Flynn Sr is a 56-year-old male with past medical history significant for congestive heart failure, secondary to systolic, diabetes mellitus type II, asthma, and hypertension who presented to his [facility] ED due to worsening lower extremity edema and dyspnea. Hospital day #11. Overnight: No acute overnight events. Cardiology started Milrinone ggt. Today Mr. Jaspal Flynn SR. was lying in bed comfortably with at foot of bed. He is urinating frequently. He reports normal appetite. He denies chest pain, shortness of breath on current O2, abdominal pain, nausea, vomiting, fever , chills, dysuria, or diarrhea. He reports some minimal activity with walks around the bed. . Exam Vital Signs Vital Sign - Last Date Time Temp Pulse Resp B/P Pulse Ox O2 Delivery O2 Flow Rate FiO2 05/13/16 05:00 86 24 96/56 97 Nasal Cannula 1.00 05/13/16 03:04 36.7 05/08/16 03:24 98 Intake and Output 05/12/16 05/12/16 05/13/16 Cumulative From/Thru 15:00 23:00 07:00 05/02/16 12:09 - 05/13/16 06:42 Intake Total 400 ml 477 ml 25326 ml Output Total 2475 ml 2850 ml 38275 ml Balance -2075 ml -2373 ml -27307 ml Intake Oral 400 ml 400 ml 62875 ml IV Total 77 ml 1802 ml Output Urine Total 2475 ml 2850 ml 41663 ml # Voids 7 # Bowel Movements 2 Exam General: Patient is laying supine with head elevated approximately 15-20 this morning. He states that he is able to lay flatter more comfortably than before. HEENT: Head is atraumatic normocephalic. Eyes: Pupils are equally round and reactive to light and accommodation. Extraocular muscles are intact. Sclera are white anicteric. Subconjunctival mucosa is pink. Ears and nose are unremarkable. Oropharynx: There are no mucosal lesions, there is no thrush, there is no pharyngitis. Neck: Supple, there are no nodes, or masses or tenderness. Chest: Is clearer to auscultation and percussion. However, there is still diminished breath sounds bilaterally. There are no rales, rhonchi, wheezes or rubs. Heart: Rate, rhythm is regular. Heart tones are distant. However, there is a grade 2/6 systolic murmur heard best at the left sternal border. There is no rub or gallop appreciated. Abdomen: Good bowel sounds are present. Abdomen is morbidly obese, soft, nontender, no organomegaly or masses were appreciated anasarca and abdominal pitting edema much improved overnight. Extremities: Are symmetrical and well perfused. There is 3+ pitting edema bilaterally to the knee, there is no cellulitis, no rash clearly evident. Neurologic: There are no focal neurological deficits. Cranial nerves II through XII are intact. There are no sensory or motor deficits. Psychiatric: Patients mood is calm and shows no sign of agitation. . IVs and Medications Medications Reviewed: Medications were reviewed in detail Lab and Diagnostics Result Diagram: 05/13/1650905/13/16509 Microbiology Urine culture shows no growth to date. . X-Rays, CTs and MRIs X-RAY CHEST ONE VIEW, PORTABLE IMPRESSION: Mild cardiomegaly and interstitial prominence suggesting fluid overload. Dictated by: Lubna Nye M.D. on 05/02/2016 at 13:05 Approved by: Lubna Nye M.D. on 05/02/2016 at 13:05 . 12-lead ECG EKG: Sinus tachycardia, heart rate 104, normal axis, normal intervals, poor R- wave progression, no pathological Q waves or acute ischemic changes such as ST elevation or depression. . Cardiac Echo Impressions Echocardiogram Interpretation Summary: The left ventricle is severely dilated. There is no thrombus. The ejection fraction is estimated to be 15-20%. Compared to the prior exam, left ventricular function is markedly decreased. The right ventricle is moderately dilated. Right ventricular systolic function is moderately reduced. The left atrium is moderately dilated. There is moderate to severe mitral regurgitation. There is mild to moderate tricuspid regurgitation. Right ventricular systolic pressure is estimated to be 30 mmHg plus the clinically estimated CVP which cannot be estimated on this exam Electronically signed by: Kd Solares on Reading Physician:05/04/2016 12:55 PM . Assessment & Plan Jaspal Flynn Sr is a 56-year-old male with past medical history significant for congestive heart failure, secondary to systolic, diabetes mellitus type II, asthma, and hypertension who presented to his [facility] ED due to worsening lower extremity edema and dyspnea. Hospital day #12. 1 Acute on chronic CHF exacerbation (NYHA class IV), present on admission. Active. - Likely due to medication non-compliance. - ECHO shows ejection fraction of 15-20%, as above. - BNP on admission was 7614 and trending down. - Strict I&O monitoring, daily standing weights and continue telemetry. - Bronchodilators q2 prn for shortness of breath - Cardiology consulted, recommendations as follows: - Therapeutic lifestyle change program with weight loss and heart healthy exercise. - Also, we talked about a low sodium diet, which is the cornerstone of his treatment and medication compliance, and I explained to the that he will need at least five heart medications when he leaves the premises including - Anticipate discharge home Monday. - Aspirin 81 mg Daily. - Torsemide 60 mg Daily. - Spironolactone 25 mg Daily. - Lisinopril 5 mg Twice a Day. - Digoxin 0.125 mg Daily. - As he gets a little bit better, we are going to initiate a beta carline. - Currently on Milrinone ggt, per cardiology. Will continue until we reach a plateau and creatinine / BUN starts to rise. - Follow up with cardiology clinic and CHF rehab. 2. Chronic hypertension, present on admission. Stable. - Continue cardiac medications as above, per Cardiology. 3. Chronic Diabetes mellitus type II, non-insulin using. present on admission. Stable. - Hemoglobin A1c 7.7%. - Continue to hold metformin due to increasing creatinine. - Continue medium dose correctional scale insulin. 4. Chronic Morbid obesity, present on admission. Active. - BMI 46.8. - Down from 400lbs to 374lbs, attributable to diuresis. Physical therapy. High risk medications: NONE Acetaminophen for mild pain when necessary. Bowel regimen Senna and MiraLAX scheduled and PRN. Zofran when necessary for nausea and vomiting. Dispo: Home likely on Monday. . Pain Evaluation: Adequate Pain Control GI Prophylaxis: Proton Pump Inhibitor VTE Prophylaxis: Sub-Q Enoxaparin VTE Mechanical Devices: Intermittant Pneumatic CD Resuscitation Status: CPR: Attempt Resuscitation Attending Statement The patient was seen and examined together with Dr. Leblanc on 05-13-16 and I agree with the history, exam and plan as outlined in the note above. LEONOR LEBLANC DO May 13, 2016 06:49 Swetha Willis MD May 14, 2016 16:47
[2016-05-13] MEDS: DEXTROSE 5% IV SCH (18:33)
[2016-05-13] MEDS: MILRINONE IV SCH (18:33)
[2016-05-13] MEDS: Furosemide 10 mg/mL 10 mL Inj IVPUSH SCH (20:42)
[2016-05-13] MEDS: Albuterol-Ipratropium 3 mL Inhalation Solution NEB SCH ×2 (22:10→22:11)
[2016-05-14] VITALS (9 sets, daily range): BP systolic 73–121; BP diastolic 7–87; PULSE 78–91; RESP 13–19; O2SAT 96–99
[2016-05-14 04:40] LABS: Mean Corpuscular Hemoglobin 26.6 pg (27.0-35.0); Mean Corpuscular Volume 82.6 fL (81-100)
[2016-05-14] MEDS: DEXTROSE 5% IV SCH (07:30)
[2016-05-14] MEDS: MILRINONE IV SCH (07:30)
--- NOTE | 2016-05-14 07:32 | NUR ---
Cardiac VSS. Tolerating Millrinone drip well. Pt reported I feel much better. No overt complications noted. Spouse at the bedside providing support and comfort.
[2016-05-14] MEDS: Insulin LISPRO 300 Unit/3 mL Inj SUBQ SCH ×4 (08:00→22:00)
--- NOTE | 2016-05-14 08:23 | PCM.PNMED ---
Subjective Date of Service May 14, 2016 Subjective Jaspal Flynn Sr is a 56-year-old male with past medical history significant for systolic congestive heart failure, diabetes mellitus type II, asthma, and hypertension who presented to his [facility] ED due to worsening lower extremity edema and dyspnea and now being treated for nonischemic cardiomyopathy. Hospital day #13. Overnight: There were no acute events. Telemetry overnight: Sinus rhythm, 80-90 's, with occasional PVCs and bigeminal pairs. The patient is resting in bed comfortably and in no acute distress. The patient reports he feels better than the previous day. He denies headache, lightheadedness or dizziness, chest pain, shortness of breath, palpitations, abdominal pain, nausea, vomiting, fever, chills, dysuria, diarrhea or constipation. . Exam Vital Signs Vital Sign - Last Date Time Temp Pulse Resp B/P Pulse Ox O2 Delivery O2 Flow Rate FiO2 05/14/16 07:31 36.5 85 13 113/69 98 Nasal Cannula 1.00 05/08/16 03:24 98 Intake and Output 05/13/16 05/13/16 05/14/16 Cumulative From/Thru 14:59 22:59 06:59 05/02/16 12:09 - 05/14/16 06:29 Intake Total 1267 ml 468 ml 82121 ml Output Total 2070 ml 1575 ml 89047 ml Balance -803 ml -1107 ml -43786 ml Intake Oral 1176 ml 468 ml 47494 ml IV Total 91 ml 1893 ml Output Urine Total 2070 ml 1575 ml 56364 ml # Voids 7 # Bowel Movements 2 Exam General: Middle aged gentleman lying in bed and in no acute distress, well- developed, well-nourished, appropriately interactive HEENT: Normocephalic, atraumatic. External ears without defect. Pupils equal, round, and reactive to light and accommodation. Anicteric sclerae, moist conjunctivae, and no lid lag. Oropharynx free of erythema and cobble stoning with moist mucosa. Neck: Supple with full range of motion. No jugular venous distension. No bruits. No lymphadenopathy or thyromegaly. Cardiovascular: Regular rate and rhythm with no murmurs, rubs, or gallops appreciated. Heart sounds are distant. Pulmonary: Clear to auscultation bilaterally with no crackles, wheezes, or rhonchi. Normal respiratory effort with no use of accessory muscles. Abdomen: Soft, obese, nontender, nondistended. No hepatosplenomegaly or masses appreciated. Extremities: No clubbing, cyanosis, or edema. Skin: Normal temperature, turgor, and texture; no rash, ulcers, or subcutaneous nodules appreciated. Neurological: Cranial nerves grossly intact. No known gait impairment. Psychiatric: Normal mood and affect. Alert and oriented to person, place, and time. . IVs and Medications Medications Reviewed: Medications were reviewed in detail Lab and Diagnostics Item Value Date Time Calcium Level 9.2 mg/dL 05/14/16429 Pro-B-Type Natriuretic Peptide 3455 pg/mL H 05/14/16429 Result Diagram: 05/14/1642905/14/16429 Microbiology Urine culture shows no growth to date. . X-Rays, CTs and MRIs X-RAY CHEST ONE VIEW, PORTABLE IMPRESSION: Mild cardiomegaly and interstitial prominence suggesting fluid overload. Dictated by: Lubna Nye M.D. on 05/02/2016 at 13:05 Approved by: Lubna Nye M.D. on 05/02/2016 at 13:05 . 12-lead ECG EKG: Sinus tachycardia, heart rate 104, normal axis, normal intervals, poor R- wave progression, no pathological Q waves or acute ischemic changes such as ST elevation or depression. . Cardiac Echo Impressions Echocardiogram Interpretation Summary: The left ventricle is severely dilated. There is no thrombus. The ejection fraction is estimated to be 15-20%. Compared to the prior exam, left ventricular function is markedly decreased. The right ventricle is moderately dilated. Right ventricular systolic function is moderately reduced. The left atrium is moderately dilated. There is moderate to severe mitral regurgitation. There is mild to moderate tricuspid regurgitation. Right ventricular systolic pressure is estimated to be 30 mmHg plus the clinically estimated CVP which cannot be estimated on this exam Electronically signed by: Kd Solares on Reading Physician:05/04/2016 12:55 PM . Assessment & Plan Jaspal Flynn Sr. is a 56-year-old male with past medical history significant for systolic congestive heart failure, diabetes mellitus type II, asthma, and hypertension who presented to his [facility] ED due to worsening lower extremity edema and dyspnea and now being treated for nonischemic cardiomyopathy. Hospital day #13. 1 Acute on chronic CHF exacerbation (NYHA class IV), present on admission. Active. - Likely due to medication non-compliance. - ECHO shows ejection fraction of 15-20%, as above. - BNP on admission was 7614 and trending down. - Strict I&O monitoring, daily standing weights and continue telemetry. - Bronchodilators every two hours as needed for shortness of breath. - Cardiology consulted, recommendations as follows: - Therapeutic lifestyle change program with weight loss and heart healthy exercise. - Low sodium diet, which is the cornerstone of his treatment and medication compliance. - Aspirin 81 mg daily. - Furosemide 80 mg twice daily. - Spironolactone 25 mg daily. - Lisinopril 5 mg twice a day. - Carvedilol 6.25 twice daily. - Discontinued Milrinone ggt, per cardiology. - Follow up with cardiology clinic with Dr. Stock or [facility] within 2-3 weeks and repeat CMP in 2 weeks after discharge and CC to PCP and [facility]. CHF rehab at time of discharge. 2. Chronic hypertension, present on admission. Stable. - Continue cardiac medications as above, per Cardiology. 3. Chronic Diabetes mellitus type II, non-insulin using. present on admission. Stable. - Hemoglobin A1c 7.7%. - Discussed strict management of diabetes and lifestyle changes. - Continue to hold metformin due to increasing creatinine and may be contraindicated? - Continue medium dose correctional scale insulin. 4. Chronic Morbid obesity, present on admission. Active. - BMI 46.8. - Down from 400lbs to 374lbs, attributable to diuresis. High risk medications: NONE Acetaminophen for mild pain when necessary. Bowel regimen Senna and MiraLAX scheduled and PRN. Zofran when necessary for nausea and vomiting. Dispo: Home likely on Monday. . GI Prophylaxis: Proton Pump Inhibitor VTE Prophylaxis: Sub-Q Enoxaparin VTE Mechanical Devices: Intermittant Pneumatic CD Resuscitation Status: CPR: Attempt Resuscitation Attending Statement The patient was seen and examined together with Dr. Slater on 05-14-16 and I agree with the history, exam and plan as outlined in the note above. Susan Slater DO May 14, 2016 08:23 Swetha Willis MD May 15, 2016 09:04
[2016-05-14] MEDS: Fluticasone 100 mCg Inhaler INHALATION SCH ×2 (08:52→20:18)
[2016-05-14] MEDS: Pantoprazole 20 mg ER24 Tablet PO SCH (08:52)
[2016-05-14] MEDS: Furosemide 10 mg/mL 10 mL Inj IVPUSH SCH (08:53)
--- NOTE | 2016-05-14 09:35 | PCM.PNCARD ---
Subjective Date of service May 14, 2016 Chief Complaint SOB History of Present Illness Patient is symptomatically improving. He continues to lose weight on a daily basis. Patient denies any PND orthopnea over the past 2 nights. However he is becoming more prerenal azotemic. Constitutional: Denies: Chills, Fever Eyes: Denies: Blurred Vision Cardiovascular: Denies: Chest Pain, SOB while laying flat Respiratory: Denies: Cough Gastrointestinal: Denies: Abdominal Pain Endocrine: Reports: Blood Glucose Review Exam Vital Signs Vital Sign - Last Date Time Temp Pulse Resp B/P Pulse Ox O2 Delivery O2 Flow Rate FiO2 05/14/16 07:31 36.5 85 13 113/69 98 Nasal Cannula 1.00 05/08/16 03:24 98 Intake and Output 05/13/16 05/13/16 05/14/16 Cumulative From/Thru 15:00 23:00 07:00 05/02/16 12:09 - 05/14/16 07:00 Intake Total 1267 ml 568 ml 04893 ml Output Total 2070 ml 1575 ml 97090 ml Balance -803 ml -1007 ml -24234 ml Intake Oral 1176 ml 468 ml 35044 ml IV Total 91 ml 100 ml 1993 ml Output Urine Total 2070 ml 1575 ml 60065 ml # Voids 7 # Bowel Movements 2 General: Pleasant Cooperative Severely obese Head: Normocephalic Cardiac: Regular rhythm Extremities: Edema (improving) Neurological: Alert & oriented Lab and Diagnostics Labs CBC Test 05/11/16 04:30 05/14/16 04:30 Neutrophils (%) (Auto) 54.4% (40-74) Lymphocytes (%) (Auto) 23.5% (14-46) Monocytes (%) (Auto) 15.3% (4-12) Eosinophils (%) (Auto) 6.0% (0-5) Basophils (%) (Auto) 0.8% (0-3) White Blood Count 6.7th/mm3 (3.8-10.1) Red Blood Count 4.59mil/mm3 (4.40-5.80) Hemoglobin 12.2g/dL (13.8-17.2) Hematocrit 37.9% (41.0-50.0) Mean Corpuscular Volume 82.6fL (81-100) Mean Corpuscular Hemoglobin 26.6pg (27.0-35.0) Mean Corpuscular Hemoglobin Concent 32.2% (32.0-37.0) Red Cell Distribution Width 14.9% (12.3-15.4) Platelet Count 273bil/L (150-400) CMP Test 05/02/16 13:15 05/02/16 19:50 05/06/16 06:00 05/08/16 14:30 Lipase 53U/L Hold Alaniz Top Tube Received Troponin T < 0.010ug/L Hemoglobin A1c 7.7% Triglycerides Level 49mg/dL Cholesterol Level 137mg/dL LDL Cholesterol, Calculated 80.200mg/dL VLDL Cholesterol 9.800mg/dL HDL Cholesterol 47mg/dL Cholesterol/HDL Ratio 2.91 Magnesium Level 2.0mg/dL Test 05/09/16 04:09 05/14/16 04:30 Total Bilirubin 0.9mg/dL Aspartate Amino Transf (AST/SGOT) 15U/L Alanine Aminotransferase (ALT/SGPT) 9U/L Alkaline Phosphatase 90U/L Total Protein 6.3g/dL Albumin 3.1g/dL Sodium Level 139mEq/L Potassium Level 4.9mEq/L Chloride Level 100mEq/L Carbon Dioxide Level 29mmol/L Blood Urea Nitrogen 34mg/dL Creatinine 1.25mg/dL Estimat Glomerular Filtration Rate 64mL/min Glucose Level 108mg/dL Calcium Level 9.2mg/dL Pro-B-Type Natriuretic Peptide 3455pg/mL Result Diagram: 05/14/1642905/14/16429 Assessment & Plan Problems: (1) Acute on chronic systolic heart failure Plan: Continues to improve. -Stop milrinone -RESTART carvedilol 6.25 mg bid and switch furosemide to 80 mg bid and repeat BMP tomorrow. -Most likely patient will be able to go home tomorrow. -Continue with spironolactone 25 mg qd and Lisinopril 5 mg bid. -Will need to f/u with Dr. Stock or [facility] within 2-3 weeks. -Repeat CMP in 2 weeks after discharge and CC to PCP and [facility]. Status: Resolved ICD Code: I50.23 (2) Hypertension Qualifiers: Hypertension type: essential hypertension Hypertension goal: less than 130 /80 Qualified Code: I10 - Essential (primary) hypertension Plan: -Restart carvedilol 6.25 mg twice a day. -Furosemide 80 mg BID -Spironolactone 25 mg qd -Lisinopril 5 mg BID Status: Chronic ICD Code: I10 (3) Morbid obesity Qualifiers: Obesity type: due to excess calories Qualified Code: E66.01 - Morbid ( severe) obesity due to excess calories Plan: Patient still has chronic morbid obesity but has lost significant amount weight since hospitalization. He has lost 20 kg purely from fluid overload. Status: Chronic ICD Code: E66.01 (4) Sleep apnea Qualifiers: Sleep apnea type: obstructive Qualified Code: G47.33 - Obstructive sleep apnea (adult) (pediatric) Status: Chronic ICD Code: G47.30 (5) Diabetes type 2, uncontrolled Status: Chronic ICD Code: E11.65 (6) Hyperlipidemia Qualifiers: Hyperlipidemia type: Mixed hyperlipidemia Qualified Code: E78.2 - Mixed hyperlipidemia Status: Chronic ICD Code: E78.5 Pain Evaluation: Adequate Pain Control GI Prophylaxis: Proton Pump Inhibitor VTE Prophylaxis: Sub-Q Enoxaparin VTE Mechanical Devices: Intermittant Pneumatic CD Resuscitation Status: CPR: Attempt Resuscitation Discharge Plan: Possibly can go home tomorrow. Please send patient on 2 months supply of cardiac meds without refills. Time spent 20 minutes copies to: Sapphire Stock MD, Oscar J MD May 14, 2016 09:35
--- NOTE | 2016-05-14 11:14 | NUR ---
PT eval order received for PT eval; per nsg and pt, pt up ad marleny in room without difficulty; sitting at EOB when this PT arrived; pt jovial and in good spirits; pt able to demonstrate ROM WFL all extremities; went to look for pt's shoes in closet and pt jumps up from bed and amb around bed to look without difficulty; informed pt that all that was left to see was balance and pt proceeds to stand on one foot with 1 PLOB from which he recovered indep and then demonstrated again without difficulty, which is a higher level of function than the test; pt seen for courtesy visit and eval not indicated; OK to be up ad marleny in room; no further PT
--- NOTE | 2016-05-14 12:30 | NUR ---
Transfer of care [facility], report given. Patient stable. Addendum: 05/14/16 at 1931 by RADHA BATEMAN RN Uneventful shift. No pain, independent in the room, vital signs within normal limits (one episode of hypotension, BP rechecked on R radial -- normal). No pain. Tolerating PO intake well. Blood glucose within normal limits.
--- NOTE | 2016-05-14 15:47 | NUR ---
Social Work Continued Discharge Planning/Readiness for Discharge D/A EMR Reviewed. Pt is not medically ready for discharge at this time, will likely be tomorrow. Pt is on day 12 of hospitalization for CHF. SW met with pt at bedside to confirm discharge plan and assess for any unmet needs. Pt confirmed discharge plan to go home via POV when medically ready. Pt had heart cath. SW provided Pt with [employer] Application and advised him to complete it and return to Financial office at [facility]. SW discussed f/u appointment at [facility]. Pt reports he is unhappy with them frequently canceling his appointments which he believes led him to be admitted to hospital. SW suggested Pt make appointment at the [facility] residency clinic. Pt reports he will look into it. No other needs identified by patient. P: Anticipated discharge home via POV when medically ready. Pt denies any other needs at this time. SW to continue to follow if any needs arise. DANIEL Arellano
[2016-05-15 03:18] VITALS: PULSE 83
[2016-05-15 04:03] VITALS: BP 116/83; PULSE 77; RESP 18; O2SAT 96
[2016-05-15 07:03] LABS: BASOPHILS % (AUTO) 0.8 % (0-3); EOSINOPHILS % (AUTO) 4.1 % (0-5); MONOCYTES % (AUTO) 14.7 % (4-12); Mean Corpuscular Hemoglobin 26.8 pg (27.0-35.0); Mean Corpuscular Volume 82.4 fL (81-100); Platelet Count 315 bil/L (150-400)
--- NOTE | 2016-05-15 07:12 | NUR ---
Cardiac Pt denies CP. VSS. No hypotestion issues noted. Pt took a shower at HS. No overt complications. Pt is enthusiastic to go home today.
[2016-05-15 07:44] LABS: Magnesium 2.1 mg/dL (1.6-2.6)
[2016-05-15] MEDS: Insulin LISPRO 300 Unit/3 mL Inj SUBQ SCH (08:00)
[2016-05-15 08:07] VITALS: BP 111/69; PULSE 81; RESP 22; O2SAT 96
[2016-05-15] MEDS: Fluticasone 100 mCg Inhaler INHALATION SCH (08:24)
[2016-05-15] MEDS: Pantoprazole 20 mg ER24 Tablet PO SCH (08:24)
[2016-05-15 09:59] VITALS: PULSE 74
--- NOTE | 2016-05-15 10:00 | NUR ---
Telemetry Update: VTACH Patient has been Sinus Rhythm 70-80s with multiform PVCs. Patient had 13 beats of VTACH at 07:37 and 5 beats of VTACH at 09:41. MARGO del cid.
--- NOTE | 2016-05-15 11:54 | NUR ---
Social Work Discharge D: EMR Reviewed. Pt is on day 13 of hospitalization for CHF. Pt is Self Pay insurance and seen at [facility]. Pt is medically stable and discharging home today via POV. Pt was provided with [employer] Care Application, Pt provided completed document to JOSE. JOSE provided to [facility] for processing. Pt to follow up at [facility] until Pt can establish care elsewhere. No discharge needs identified. A: Pt who is independent at baseline P: Pt is medically stable and discharging home today via POV. Pt was provided with [facility] Care Application, Pt provided completed document to JOSE. JOSE provided to [facility] for processing. Pt to follow up at [facility] until Pt can establish care elsewhere. No discharge needs identified. DANIEL Arellano Addendum: 05/15/16 at 1223 by ZAC LEHMAN JOSE [facility] re: [facility] meds. DANIEL Arellano
--- NOTE | 2016-05-15 11:58 | PCM.DIMED ---
LEONOR LEBLANC DO 05/15/16 1158: Discharge Instructions Date of Service May 15, 2016 Dates of Hospitalization May 02, 2016 at 17:46 Discharge Diagnosis Discharge Diagnosis 1 Acute on chronic CHF exacerbation (NYHA class IV), present on admission. Stable. 2. Chronic hypertension, present on admission. Stable. 3. Chronic Diabetes mellitus type II, non-insulin using. present on admission. Stable. 4. Chronic Morbid obesity, present on admission. Active. Medication Instructions - Aspirin 81 mg daily. - Furosemide 80 mg twice daily. - Spironolactone 25 mg daily. - Lisinopril 5 mg twice a day. - Carvedilol 6.25 twice daily. - Follow up with cardiology clinic with Dr. Stock or [facility] within 2-3 weeks and repeat CMP in 2 weeks after discharge and CC to PCP and [facility]. CHF rehab at time of discharge. Diet Heart Healthy, Diabetic Call your provider Shortness of breath, Chest pain, Weakness (unilateral), Other (Increasing lower extremity edema. ) Patient Instructions Follow-up plan - Follow up with cardiology clinic with Dr. Stock or [facility] within 2-3 weeks and repeat CMP in 2 weeks after discharge and CC to PCP and [facility]. -Repeat CMP in 2 weeks after discharge and CC to PCP and [facility]. - CHF rehab clinics. - Follow up with [facility] in 1-2 weeks time for post hospital stay and medication check. Follow-up with PCP in: 1 week Provider: Sapphire Stock MD Follow-up in: 2 weeks Swetha Willis MD 05/23/16 0809: Discharge Instructions Attending's Statement The patient was seen and examined together with Dr. Leblanc on 05-15-16 and I agree with the history, exam and plan as outlined in the note above. LEONOR LEBLANC DO May 15, 2016 11:58 Swetha Willis MD May 23, 2016 08:09
[2016-05-15] MEDS ORDERED: SPIR25TA PO (12:07)
[2016-05-15] MEDS ORDERED: ASPI81TA3 PO (12:07)
[2016-05-15] MEDS ORDERED: LISI-571 PO (12:07)
[2016-05-15] MEDS ORDERED: FRSM80T PO (12:07)
[2016-05-15] MEDS ORDERED: CARV6.252 PO (12:07)
[2016-05-15 12:26] VITALS: BP 107/69; PULSE 71; O2SAT 96
--- NOTE | 2016-05-15 13:33 | NUR ---
Discharge of patient Reviewed discharge instructions with patient and patient's . Pt verbalized understanding. pt discharged via wheelchair with prescriptions and instructions. IV and telemetry previously discontinued. Pt left hospital with to home self care.
--- NOTE | 2016-05-15 19:38 | PCM.DC.MED ---
Discharge Summary Date of Service May 15, 2016 Dates of Hospitalization Date of Hospital Admission May 02, 2016 at 17:46 Date of Discharge: May 15, 2016 Providers: Admitting Physician: Vivek Abmrose MD Primary Care Physician: Nopmargie Attending Physician: Vivek Ambrose MD Diagnosis at Time of Discharge Diagnosis at Time of Discharge 1 Acute on chronic CHF exacerbation (NYHA class IV), present on admission. Stable. 2. Chronic hypertension, present on admission. Stable. 3. Chronic Diabetes mellitus type II, non-insulin using. present on admission. Stable. 4. Chronic Morbid obesity, present on admission. Active. Procedures XRay, CTs & MRIs X-RAY CHEST ONE VIEW, PORTABLE IMPRESSION: Mild cardiomegaly and interstitial prominence suggesting fluid overload. Dictated by: Lubna Nye M.D. on 05/02/2016 at 13:05 Approved by: Lubna Nye M.D. on 05/02/2016 at 13:05 . ECG 12 Lead EKG: Sinus tachycardia, heart rate 104, normal axis, normal intervals, poor R- wave progression, no pathological Q waves or acute ischemic changes such as ST elevation or depression. . Cardiac Echo Impression Echocardiogram Interpretation Summary: The left ventricle is severely dilated. There is no thrombus. The ejection fraction is estimated to be 15-20%. Compared to the prior exam, left ventricular function is markedly decreased. The right ventricle is moderately dilated. Right ventricular systolic function is moderately reduced. The left atrium is moderately dilated. There is moderate to severe mitral regurgitation. There is mild to moderate tricuspid regurgitation. Right ventricular systolic pressure is estimated to be 30 mmHg plus the clinically estimated CVP which cannot be estimated on this exam Electronically signed by: Kd Solares on Reading Physician:05/04/2016 12:55 PM . Brief History Patient is symptomatically improving. He continues to lose weight on a daily basis. Patient denies any PND orthopnea over the past 2 nights. However he is becoming more prerenal azotemic. Hospital Course Jaspal Flynn Sr. is a 56-year-old male with past medical history significant for systolic congestive heart failure, diabetes mellitus type II, asthma, and hypertension who presented to his [facility] ED due to worsening lower extremity edema and dyspnea and now being treated for nonischemic cardiomyopathy. Hospital day #13. 1 Acute on chronic CHF exacerbation (NYHA class IV), present on admission. Active. - Likely due to medication non-compliance. - ECHO shows ejection fraction of 15-20%, as above. - BNP on admission was 7614 and trending down. - Strict I&O monitoring, daily standing weights and continue telemetry. - Bronchodilators every two hours as needed for shortness of breath. - Cardiology consulted, recommendations as follows: - Therapeutic lifestyle change program with weight loss and heart healthy exercise. - Low sodium diet, which is the cornerstone of his treatment and medication compliance. - Aspirin 81 mg daily. - Furosemide 80 mg twice daily. - Spironolactone 25 mg daily. - Lisinopril 5 mg twice a day. - Carvedilol 6.25 twice daily. - Discontinued Milrinone ggt, per cardiology. - Follow up with cardiology clinic with Dr. Stock or [facility] within 2-3 weeks and repeat CMP in 2 weeks after discharge and CC to PCP and [facility]. CHF rehab at time of discharge. 2. Chronic hypertension, present on admission. Stable. - Continue cardiac medications as above, per Cardiology. 3. Chronic Diabetes mellitus type II, non-insulin using. present on admission. Stable. - Hemoglobin A1c 7.7%. - Discussed strict management of diabetes and lifestyle changes. - Continue to hold metformin due to increasing creatinine and may be contraindicated? - Continue medium dose correctional scale insulin. 4. Chronic Morbid obesity, present on admission. Active. - BMI 46.8. - Down from 400lbs to 374lbs, attributable to diuresis. High risk medications: NONE Acetaminophen for mild pain when necessary. Bowel regimen Senna and MiraLAX scheduled and PRN. Zofran when necessary for nausea and vomiting. Dispo: Home likely on Monday. . Exam Vital Signs (Last) Date Time Temp Pulse Resp B/P Pulse Ox O2 Delivery O2 Flow Rate FiO2 05/15/16 12:26 36.7 71 107/69 96 Room Air 05/15/16 08:07 22 05/14/16 07:31 1.00 Test 05/02/16 13:15 05/02/16 17:25 05/02/16 19:50 05/06/16 06:00 Lipase 53U/L (13-60) Hold Alaniz Top Tube Received (Received) Urine Color Yellow (YELLOW) Urine Appearance Clear (CLEAR,HAZY) Urine pH 6.0 (5.0-8.0) Urine Specific Dalton 1.025 (1.003-1.035) Urine Protein 30mg/dL (NEG,TRACE) Urine Glucose (UA) Negativemg/dL (NEGATIVE) Urine Ketones Negativemg/dL (NEGATIVE) Urine Occult Blood Negative (NEGATIVE) Urine Nitrite Negative (NEGATIVE) Urine Bilirubin Negative (NEGATIVE) Urine Urobilinogen 1.0mg/dL (NORMAL) Urine Leukocyte Esterase Negative (NEGATIVE) Urine RBC 0-2/hpf (0-2) Urine WBC 0-5/hpf (0-5) Urine Epithelial Cells None/hpf (NONE-MOD) Urine Crystals None seen (NONE SEEN) Urine Bacteria Few/hpf (NONE-FEW) Urine Hyaline Casts None/lpf (NONE) Urine Granular Casts None seen (NONE SEEN) Urine Waxy Casts None seen (NONE SEEN) Urine Red Blood Cell Casts None seen (NONE SEEN) Urine White Blood Cell Casts None seen (NONE SEEN) Urine Mucus None seen (None Seen) Urine Trichomonas None seen (NONE SEEN) Urine Yeast None (NONE SEEN) Urinalysis Comment None Urine Culture Reflexed Not indicated Troponin T < 0.010ug/L (0.0-0.011) Hemoglobin A1c 7.7% (4.8-5.6) Triglycerides Level 49mg/dL (0-149) Cholesterol Level 137mg/dL (100-199) LDL Cholesterol, Calculated 80.200mg/dL (0-99) VLDL Cholesterol 9.800mg/dL HDL Cholesterol 47mg/dL (>39) Cholesterol/HDL Ratio 2.91 (0.0-4.4) Test 05/09/16 04:09 05/14/16 04:30 05/15/16 06:30 Total Bilirubin 0.9mg/dL (0.0-1.2) Aspartate Amino Transf (AST/SGOT) 15U/L (0-50) Alanine Aminotransferase (ALT/SGPT) 9U/L (0-44) Alkaline Phosphatase 90U/L (25-150) Total Protein 6.3g/dL (6.4-8.4) Albumin 3.1g/dL (3.4-5.0) Pro-B-Type Natriuretic Peptide 3455pg/mL (0-210) White Blood Count 7.4th/mm3 (3.8-10.1) Red Blood Count 4.71mil/mm3 (4.40-5.80) Hemoglobin 12.6g/dL (13.8-17.2) Hematocrit 38.8% (41.0-50.0) Mean Corpuscular Volume 82.4fL (81-100) Mean Corpuscular Hemoglobin 26.8pg (27.0-35.0) Mean Corpuscular Hemoglobin Concent 32.5% (32.0-37.0) Red Cell Distribution Width 15.1% (12.3-15.4) Platelet Count 315bil/L (150-400) Neutrophils (%) (Auto) 54.0% (40-74) Lymphocytes (%) (Auto) 26.3% (14-46) Monocytes (%) (Auto) 14.7% (4-12) Eosinophils (%) (Auto) 4.1% (0-5) Basophils (%) (Auto) 0.8% (0-3) Sodium Level 138mEq/L (134-144) Potassium Level 4.6mEq/L (3.5-5.2) Chloride Level 98mEq/L (97-108) Carbon Dioxide Level 28mmol/L (18-29) Blood Urea Nitrogen 33mg/dL (6-24) Creatinine 1.37mg/dL (0.76-1.27) Estimat Glomerular Filtration Rate 57mL/min (>59) Glucose Level 126mg/dL (60-99) Calcium Level 9.3mg/dL (8.5-10.1) Magnesium Level 2.1mg/dL (1.6-2.6) Microbiology Results Urine culture shows no growth to date. . Discharge Medications Discharge Medications Albuterol HFA (Proair HFA) 8.5 Gm Hfa.aer.ad 2 PUFFS INHALATION Q4H (Reported) Aspirin Chew (Aspirin Chew) 81 Mg Chew 81 MG PO DAILY Prescribed by: LEONOR LEBLANC DO Beclomethasone Dipropionate (Qvar) 8.7 Gm Aer.w.adap 1 PUFF INHALATION BID ( Reported) Carvedilol (Carvedilol) 6.25 Mg Tablet 6.25 MG PO BIDWM Prescribed by: LEONOR LEBLANC DO Furosemide (Furosemide) 80 Mg Tab 80 MG PO BID Prescribed by: LEONOR LEBLANC DO Lisinopril (Lisinopril) 5 Mg Tablet 5 MG PO BID Prescribed by: LEONOR LEBLANC DO Metformin (Glucophage) 1,000 Mg Tablet 1,000 MG PO BID (Reported) Metformin ER (Metformin ER) 1,000 Mg Tablet 1,000 MG PO DAILY (Reported) Potassium Chloride ER (Klor-Con M20) 20 Meq Tablet 20 MEQ PO DAILY (Reported) Pravastatin (Pravastatin) 10 Mg Tablet 10 MG PO HS (Reported) Spironolactone (Aldactone) 25 Mg Tablet 25 MG PO DAILY Prescribed by: LEONOR LEBLANC DO Additional med instructions - Aspirin 81 mg daily. - Furosemide 80 mg twice daily. - Spironolactone 25 mg daily. - Lisinopril 5 mg twice a day. - Carvedilol 6.25 twice daily. - Follow up with cardiology clinic with Dr. Stock or [facility] within 2-3 weeks and repeat CMP in 2 weeks after discharge and CC to PCP and [facility]. CHF rehab at time of discharge. Followup Plan Follow-up plan - Follow up with cardiology clinic with Dr. Stock or [facility] within 2-3 weeks and repeat CMP in 2 weeks after discharge and CC to PCP and [facility]. -Repeat CMP in 2 weeks after discharge and CC to PCP and [facility]. - CHF rehab clinics. - Follow up with [facility] in 1-2 weeks time for post hospital stay and medication check. Discharge Diet: Heart Healthy, Diabetic Follow-up with PCP in: 1 week Provider: Sapphire Stock MD Follow-up in: 2 weeks Attending Statement The patient was seen and examined together with Dr. Leblanc on 05-15-16 and I agree with the history, exam and plan as outlined in the note above. copies to: Sapphire Stock MD, COREY P DO May 15, 2016 19:38 Swetha Willis MD May 23, 2016 08:09
--- NOTE | 2016-05-16 19:08 | NUR ---
Follow up call Patient called at home for follow up. No answer. Message left for him to return call. RN 05/17/16 to follow up with MD yoo: CHF clinic vs. cardiac rehab.
--- NOTE | 2016-05-17 13:24 | NUR ---
unsuccessful Follow up phone for CHF patients Date: 05/17 Time: [id number] no answer per dc instructions, pt to have cardiac rehab (vs edu clinic). fax sent to cardio (cyndy) requesting office notify [facility] edu clinic if pt would like to have edu clinic after discharged from rehab Information Discussed: Questions patient had:
== END 2016-05-15 13:01 | disposition home or self-care (01) | DRG 191 ==
LOC: SED 12:02 → MPC 17:46 → OBSVTOIN 17:46 → MPC 18:43 → PCC 05-07 10:59
PROVIDERS: ADMIT Internal Medicine; ATTEND Internal Medicine
PROC: 4A023N8 Measurement of Cardiac Sampling and Pressure, Bilateral, Percutaneous Approach (ICD-10-PCS; principal; 2016-05-12)
PROC: B2111ZZ Fluoroscopy of Multiple Coronary Arteries using Low Osmolar Contrast (ICD-10-PCS; 2016-05-12)
PROC: 4A1239Z Monitoring of Cardiac Output, Percutaneous Approach (ICD-10-PCS; 2016-05-12)
DX: I50.23 Acute on chronic systolic (congestive) heart failure (principal); E11.65 Type 2 diabetes mellitus with hyperglycemia; I10 Essential (primary) hypertension; E66.01 Morbid (severe) obesity due to excess calories; Z68.39 Body mass index [BMI] 39.0-39.9, adult; E78.5 Hyperlipidemia, unspecified; I34.0 Nonrheumatic mitral (valve) insufficiency; Z91.14 Patient's other noncompliance with medication regimen

== ENCOUNTER 2016-10-17 00:27 | Day surgery (SDC) | payer OTHER ==
[~2016-10-17 00:27] MED LIST changes: +ALBU8.5H2 INHALATION; -ASPI81TA2 PO; +ASPI81TA3 PO; +BECL8.7A6 INHALATION; -CARV12.5 PO; +CARV6.252 PO; -CMBV14.7IN INH; +FRSM80T PO; -FURO20TA PO; -GLYB2.5T5 PO; -K20 PO; +LISI-571 PO; -LOVA20TA7 PO; +METF-496 PO; +METF1000 PO; +POTA20TA7 PO; +PRAV10TA2 PO; -PRI20 PO; +SPIR25TA PO; -SYMINH IH; -ZES20 PO
[2016-10-17] MEDS ORDERED: Furosemide 10 mg/mL 4 mL Inj IVPUSH ONE (06:00)
[2016-10-17] MEDS ORDERED: SILD100T PO (10:45)
[2016-10-17] MEDS ORDERED: FRSM80T PO (10:45)
--- NOTE | 2016-10-17 13:09 | NUR ---
NO SHOW for 1200 10/17/16 appointment: Patient called at home. 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 Message left requesting call back. Dr. Stinson's office called and notified.
== END 2016-10-17 23:59 | disposition home or self-care (01) ==
LOC: MOCO 00:27
PROVIDERS: ATTEND Internal Medicine
DX: I50.9 Heart failure, unspecified (principal); Z53.8 Procedure and treatment not carried out for other reasons